=== PATIENT | male | born 1990 | race Caucasian/White ===

== ENCOUNTER 2018-02-20 21:41 | Inpatient (IN) | payer SELFPAY ==
[2018-02-20] MEDS ORDERED: VANCOMYCIN HCL INJ 1000 MG VIAL IV ONE (23:09)
[2018-02-20] MEDS ORDERED: CEFTRIAXONE INJ 1000 MG VIAL IV ONE (23:10)
--- NOTE | 2018-02-20 23:35 | ER Document Report ---
ED General - General Chief Complaint: Testicular Pain Stated Complaint: POSSIBLE LUMP ON TESTICLE Time Seen by Provider: 02/20/18 23:02 Notes: Patient is a pleasant 28-year-old male who presents with complaint of redness to the scrotal area. He said initially had a small red bump on the scrotum and then it started to spread redness and now the entire scrotal area is red and swollen. He says is only minimally painful. No fevers. No vomiting. Is not diabetic. He has no medical problems. Does not smoke or drink. He is otherwise healthy. No other complaints at this time. No pain into the abdomen or surrounding pelvis. TRAVEL OUTSIDE OF THE [place] IN LAST 30 DAYS: No - Related Data Allergies/Adverse Reactions: ciprofloxacin [From Cipro] Allergy (Verified 02/20/18 22:50) Past Medical History - Social History Smoking Status: Former Smoker Chew tobacco use (# tins/day): No Frequency of alcohol use: Rare Drug Abuse: None Family History: Reviewed & Not Pertinent Patient has suicidal ideation: No Patient has homicidal ideation: No Renal/ Medical History: Denies: Hx Peritoneal Dialysis GI Medical History: Reports: Hx Gastroesophageal Reflux Disease Review of Systems - Review of Systems Notes: My Normal Review Basic REVIEW OF SYSTEMS: CONSTITUTIONAL : Denies fever, chills, or sweats. Denies recent illness. GASTROINTESTINAL: Denies abdominal pain. Denies nausea, vomiting, or diarrhea. Denies constipation. Last BM: GENITOURINARY: redness and swelling to scrotal region MUSCULOSKELETAL: Denies neck or back pain or joint pain or swelling. SKIN: redness to scrotal region ALL OTHER SYSTEMS REVIEWED AND NEGATIVE. Physical Exam - Vital signs Vitals: Temp Pulse Resp BP Pulse Ox 99.6 F 108 H 18 134/75 H 98 02/20/18 21:41 02/20/18 21:41 02/20/18 21:41 02/20/18 21:41 02/20/18 21:41 - Notes Notes: General Appearance: Well nourished, alert, cooperative, no acute distress, no obvious discomfort. Vitals: reviewed, See vital signs table. Abdomen: Normal BS, soft, No rigidity, No abdominal tenderness, No guarding, no rebound, no abdominal masses, no organomegaly Genital: Some redness and swelling to the scrotal region. No redness spreading to pelvic region. No pain to palpation to the pelvic region. No crepitance to palpation. Extremities: strength 5/5 in all extremities, good pulses in all extremities, no swelling or tenderness in the extremities, no edema. Skin: warm, dry, appropriate color, no rash Neuro: speech clear, oriented x 3, normal affect, responds appropriately to questions. Course - Re-evaluation Re-evalutation: 02/21/18 01:54 I reevaluated the patient. Patient has no signs of Christiano's gangrene. Patient looks well. The radiologist and fortunately read the ultrasound as possible early signs of abscess or Christiano's gangrene. Once again the patient has no risk factors for this and otherwise looks well however he does have significant scrotal cellulitis. I did speak with the hospitalist who agrees to admit the patient with urology consult for observation and treatment. Dictation of this chart was performed using voice recognition software; therefore, there may be some unintended grammatical errors. - Vital Signs Vital signs: Temp Pulse Resp BP Pulse Ox 99.6 F 108 H 18 134/75 H 98 02/20/18 21:41 02/20/18 21:41 02/20/18 21:41 02/20/18 21:41 02/20/18 21:41 - Laboratory Result Diagrams: 02/20/18 23:30 02/20/18 23:30 Laboratory results interpreted by me: 02/20/18 02/20/18 02/21/18 23:30 23:30 01:21 WBC 12.5 H Hgb 11.6 L Hct 35.3 L MCV 76 L MCH 25.1 L RDW 14.6 H Lymphocytes % 12.3 L Absolute Neutrophils 9.6 H Glucose 111 H Urine Protein 30 H Urine Blood SMALL H Urine Urobilinogen 4.0 H Discharge - Discharge Clinical Impression: Cellulitis of scrotum Condition: Stable Disposition: ADMITTED OBSERVATION
[2018-02-20 23:49] LABS: ABSOLUTE BASOPHILS # (AUTO) 0.1 10^3/uL (0.0-0.2); ABSOLUTE EOSINOPHILS # (AUTO) 0.2 10^3/uL (0.0-0.6); ABSOLUTE LYMPHOCYTES (AUTO) 1.5 10^3/uL (0.5-4.7); ABSOLUTE MONOCYTES (AUTO) 1.1 10^3/uL (0.1-1.4); ABSOLUTE NEUT (AUTO) 9.6 10^3/uL (1.7-8.2); BASOPHILS % (AUTO) 0.7 % (0-2); EOSINOPHILS % (AUTO) 1.3 % (0-6); HEMATOCRIT 35.3 % (37.9-51.0); HEMOGLOBIN 11.6 g/dL (13.5-17.0); LYMPHOCYTES % (AUTO) 12.3 % (13-45); MEAN CORPUSCULAR HEMOGLOBIN 25.1 pg (27.0-33.4); MEAN CORPUSCULAR HGB CONC 32.9 g/dL (32.0-36.0); MEAN CORPUSCULAR VOLUME 76 fl (80-97); MONOCYTES % (AUTO) 8.8 % (3-13); PLATELET COUNT 385 10^3/uL (150-450); RED BLOOD COUNT 4.63 10^6/uL (4.35-5.55); RED CELL DISTRIBUTION WIDTH 14.6 % (11.5-14.0); SEGMENTED NEUTROPHILS % (AUTO) 76.9 % (42-78); TOTAL CELLS COUNTED % (AUTO) 100 %; WHITE BLOOD COUNT 12.5 10^3/uL (4.0-10.5)
[2018-02-21 00:02] LABS: ANION GAP 8 (5-19); BLOOD UREA NITROGEN 13 mg/dL (7-20); CALCIUM 8.6 mg/dL (8.4-10.2); CARBON DIOXIDE 28 mmol/L (22-30); CHLORIDE 103 mmol/L (98-107); GLUCOSE 111 mg/dL (75-110); POTASSIUM 4.1 mmol/L (3.6-5.0); SODIUM 138.5 mmol/L (137-145)
--- NOTE | 2018-02-21 01:27 | RADIOLOGY REPORT (SQ) ---
EXAM DESCRIPTION: U/S SCROTUM W/DOPPLER CLINICAL HISTORY: 28 years Male, swollen testicles COMPARISON: None. TECHNIQUE: Real-time sonographic images of the scrotal contents obtained using a linear multi hertz transducer. Color and spectral Doppler imaging was also obtained. FINDINGS: Testicles: The right testicle measures 4.2 x 2.4 x 2.7 cm. The left testicle measures 4.2 x 2.2 x 2.7 cm. No solid intratesticular mass identified. Homogenous echogenicity of the testicles. Epididymis:No abnormalities of the epididymis. Hydrocele: Small bilateral hydroceles. Blood flow:Normal arterial and venous blood flow identified bilaterally. Other: There is edema within the scrotal soft tissues inferior to the left testicle. There is heterogeneous soft tissue fluid collection measuring 1.0 x 1.5 x 1.2 cm possibly representing an abscess or inflammatory phlegmon. Hyperemia of the scrotal soft tissues. IMPRESSION: 1. Normal blood flow identified in the testicles bilaterally. 2. Small bilateral hydroceles. 3. Edema and hyperemia of the scrotal soft tissues with possible 1.5 cm heterogeneous fluid collection in the left scrotal soft tissues. These findings could be seen with cellulitis and soft tissue developing abscess. This finding could be also be associated with Christiano's gangrene. Correlation for history of diabetes recommended.
[2018-02-21 01:34] LABS: APPEARANCE,URINE SLIGHTLY-CLOUDY; BILIRUBIN,URINE NEGATIVE (NEGATIVE); COLOR,URINE YELLOW; GLUCOSE, URINE NEGATIVE (NEGATIVE); KETONES,URINE NEGATIVE (NEGATIVE); LEUKOCYTE ESTERASE,URINE NEGATIVE (NEGATIVE); NITRITE,URINE NEGATIVE (NEGATIVE); PROTEIN,URINE 30 mg/dL (NEGATIVE); URINE SPECIFIC GRAVITY 1.026
[2018-02-21] MEDS ORDERED: ONDANSETRON HCL INJ/PF 4 MG/2 ML SDV IV PRN (02:13)
[2018-02-21] MEDS ORDERED: OXYCODONE-ACETAMINOPHEN 5-325 MG TABLET PO PRN (02:13)
--- NOTE | 2018-02-21 02:37 | PDOC H&P ---
History of Present Illness History of Present Illness: QUINN TREVINO is a 28 year old male patient who does not have significant medical history presents with one-week history of scrotal swelling and redness. He reports initially it started as a small papule which spread to the rest of his scrotum diffusely. His initial blood workup shows mild leukocytosis of 12.5 otherwise nonrevealing. Scrotal ultrasound reported as edema and hyperemia of the scrotal soft tissue with possible 1.5 cm heterogeneous fluid collection in the left scrotal soft tissue. These findings could be seen with cellulitis and soft tissue developing abscess. This finding could be also associated with Fourier's gangrene. On physical examination he has diffuse hyperemia and tenderness of his scrotum and some degree of hyperemia or so on his left eye he has also bilateral enlarged lymph nodes marked on the left side which could be reactive lymphadenopathy. Past Medical History Medical History: None GI Medical History: Reports: Gastroesophageal Reflux Disease Past Surgical History Past Surgical History: Reports: None Social History Smoking Status: Former Smoker Family History Family History: Reviewed & Not Pertinent Parental Family History Reviewed: Yes Children Family History Reviewed: Yes Sibling(s) Family History Reviewed.: Yes Medication/Allergy Allergies/Adverse Reactions: ciprofloxacin [From Cipro] Allergy (Verified 02/20/18 22:50) Review of Systems Constitutional: PRESENT: weight loss Eyes: ABSENT: visual disturbances Respiratory: ABSENT: cough, hemoptysis Gastrointestinal: ABSENT: abdominal pain, constipation, diarrhea, hematemesis, hematochezia, nausea, vomiting Genitourinary: PRESENT: as per HPI Integumentary: PRESENT: as per HPI Neurological: ABSENT: abnormal gait, abnormal speech, confusion, dizziness, focal weakness, syncope Psychiatric: ABSENT: anxiety, depression, homidical ideation, suicidal ideation Physical Exam Vital Signs: Temp Pulse Resp BP Pulse Ox 99.6 F 108 H 18 134/75 H 98 02/20/18 21:41 02/20/18 21:41 02/20/18 21:41 02/20/18 21:41 02/20/18 21:41 Intake & Output 02/19/18 02/20/18 02/21/18 06:59 06:59 06:59 Weight 104 kg General appearance: PRESENT: no acute distress Head exam: PRESENT: atraumatic, normocephalic Respiratory exam: PRESENT: clear to auscultation ever. ABSENT: rales, rhonchi, wheezes Cardiovascular exam: PRESENT: RRR. ABSENT: diastolic murmur, rubs, systolic murmur GI/Abdominal exam: PRESENT: normal bowel sounds, soft. ABSENT: distended, guarding, mass, organolmegaly, rebound, tenderness Gentrourinary exam: PRESENT: erythema, scrotal swelling, other - Bilateral inguinal lymphadenopathy Results Laboratory Results: 02/20/18 23:30 02/20/18 23:30 02/20/18 02/20/18 02/21/18 23:30 23:30 01:21 WBC 12.5 H RBC 4.63 Hgb 11.6 L Hct 35.3 L MCV 76 L MCH 25.1 L MCHC 32.9 RDW 14.6 H Plt Count 385 Seg Neutrophils % 76.9 Lymphocytes % 12.3 L Monocytes % 8.8 Eosinophils % 1.3 Basophils % 0.7 Absolute Neutrophils 9.6 H Absolute Lymphocytes 1.5 Absolute Monocytes 1.1 Absolute Eosinophils 0.2 Absolute Basophils 0.1 Sodium 138.5 Potassium 4.1 Chloride 103 Carbon Dioxide 28 Anion Gap 8 BUN 13 Creatinine 0.89 Est GFR ( Amer) > 60 Est GFR (Non-Af Amer) > 60 Glucose 111 H Calcium 8.6 Urine Color YELLOW Urine Appearance SLIGHTLY-CLOUDY Urine pH 5.0 Ur Specific [place] 1.026 Urine Protein 30 H Urine Glucose (UA) NEGATIVE Urine Ketones NEGATIVE Urine Blood SMALL H Urine Nitrite NEGATIVE Ur Leukocyte Esterase NEGATIVE Urine WBC (Auto) 1 Urine RBC (Auto) 3 Impressions: Scrotum Ultrasound 02/20/18 22:14 IMPRESSION: 1. Normal blood flow identified in the testicles bilaterally. 2. Small bilateral hydroceles. 3. Edema and hyperemia of the scrotal soft tissues with possible 1.5 cm heterogeneous fluid collection in the left scrotal soft tissues. These findings could be seen with cellulitis and soft tissue developing abscess. This finding could be also be associated with Christiano's gangrene. Correlation for history of diabetes recommended. Assessment & Plan - Diagnosis (1) Cellulitis of scrotum Is this a current diagnosis for this admission?: Yes Plan: Patient has been started on cefepime. Urology consulted - Time Time Spent: 30 to 50 Minutes - Inpatient Certification Medical Necessity: Need for IV Antibiotics
[2018-02-21] MEDS: LANSOPRAZOLE 30 MG TAB.RAP.DR PO SCH (06:04)
[2018-02-21] MEDS ORDERED: CEFEPIME 2 GM/D5W RTU 2 GM/50 ML RTUPB IV SCH (10:00)
[2018-02-21] MEDS: ENOXAPARIN SODIUM INJ 40 MG/0.4 ML DISP.SYRIN SUBCUT SCH (10:58)
[2018-02-21] MEDS: CEFEPIME HCL 2 GM in DEXTROSE 5%-WATER 50 ML IV SCH ×2 (10:58→22:12)
--- NOTE | 2018-02-21 13:11 | PDOC CONSULTATION ---
Consultation Consult Date: 02/21/18 Consult reason:: scrotal swelling History of Present Illness Admission Date/PCP: 02/21/18 02:25 Patient complains of: Patient presented with scrotal swelling redness and irritation. History of Present Illness: QUINN TREVINO is a 28 year old male patient noticed 2 days ago some swelling and redness of the scrotum that was itchy there was no urinary problems no discharge the swelling was red irritated but no fluctuant no testicular pain. There was no fever no chills no nausea no vomiting. Past Medical History GI Medical History: Reports: Gastroesophageal Reflux Disease Past Surgical History Past Surgical History: Reports: None Social History Smoking Status: Former Smoker Number of Years Smokin Last Time Smoked: 7 years ago Frequency of Alcohol Use: None Hx Recreational Drug Use: No Drugs: None Hx Prescription Drug Abuse: No - Advance Directive Resuscitation Status: Full Code Family History Family History: Reviewed & Not Pertinent Parental Family History Reviewed: No Children Family History Reviewed: No Sibling(s) Family History Reviewed.: No Medication/Allergy Home Medications: Multivitamin [Tab-A-Sita (Multiple Vitamin) Tablet] 1 tab PO DAILY 02/21/18 Ranitidine HCl [Zantac 150 mg Tablet] 150 mg PO DAILY 02/21/18 Allergies/Adverse Reactions: ciprofloxacin [From Cipro] Allergy (Verified 02/20/18 22:50) Physical Exam Vital Signs: Temp Pulse Resp BP Pulse Ox 98.4 F 82 16 112/57 L 97 02/21/18 11:58 02/21/18 11:58 02/21/18 11:58 02/21/18 11:58 02/21/18 11:58 Intake & Output 02/20/18 02/21/18 02/22/18 06:59 06:59 06:59 Weight 93.7 kg Additional comments: Physical exam of the scrotum both testes are normal nontender. The there is a skin irritation and redness and swelling edema of the cephalad part of the scrotum mainly on the left side but is not involving the whole left scrotum. There is no fluctuation or evidence of abscess by physical exam Results Impressions: Scrotum Ultrasound 02/20/18 22:14 IMPRESSION: 1. Normal blood flow identified in the testicles bilaterally. 2. Small bilateral hydroceles. 3. Edema and hyperemia of the scrotal soft tissues with possible 1.5 cm heterogeneous fluid collection in the left scrotal soft tissues. These findings could be seen with cellulitis and soft tissue developing abscess. This finding could be also be associated with Christiano's gangrene. Correlation for history of diabetes recommended. Assessment & Plan - Diagnosis (1) Cellulitis of scrotum Is this a current diagnosis for this admission?: Yes Plan: I reviewed his white count is 12,000 however there is no shift to the left and his that he is afebrile according to him the swelling is less and the pain is less so I agree with the treatment IV antibiotics and I will follow-up with him preferably to repeat the CBC tomorrow
[2018-02-21] MEDS: ACETAMINOPHEN 325 MG TABLET PO PRN (23:57)
[2018-02-22] MEDS: LANSOPRAZOLE 30 MG TAB.RAP.DR PO SCH (05:30)
[2018-02-22 08:19] LABS: ABSOLUTE BASOPHILS # (AUTO) 0.1 10^3/uL (0.0-0.2); ABSOLUTE EOSINOPHILS # (AUTO) 0.3 10^3/uL (0.0-0.6); ABSOLUTE LYMPHOCYTES (AUTO) 1.5 10^3/uL (0.5-4.7); ABSOLUTE MONOCYTES (AUTO) 1.3 10^3/uL (0.1-1.4); ABSOLUTE NEUT (AUTO) 10.3 10^3/uL (1.7-8.2); BASOPHILS % (AUTO) 0.5 % (0-2); EOSINOPHILS % (AUTO) 2.1 % (0-6); HEMATOCRIT 33.9 % (37.9-51.0); HEMOGLOBIN 11.2 g/dL (13.5-17.0); LYMPHOCYTES % (AUTO) 11.1 % (13-45); MEAN CORPUSCULAR HEMOGLOBIN 25.3 pg (27.0-33.4); MEAN CORPUSCULAR HGB CONC 33.2 g/dL (32.0-36.0); MEAN CORPUSCULAR VOLUME 76 fl (80-97); MONOCYTES % (AUTO) 9.7 % (3-13); PLATELET COUNT 353 10^3/uL (150-450); RED BLOOD COUNT 4.44 10^6/uL (4.35-5.55); SEGMENTED NEUTROPHILS % (AUTO) 76.6 % (42-78); TOTAL CELLS COUNTED % (AUTO) 100 %; WHITE BLOOD COUNT 13.4 10^3/uL (4.0-10.5)
[2018-02-22] MEDS: ENOXAPARIN SODIUM INJ 40 MG/0.4 ML DISP.SYRIN SUBCUT SCH (09:26)
[2018-02-22] MEDS: FAMOTIDINE 20 MG TABLET PO PRN ×2 (09:27→22:18)
--- NOTE | 2018-02-22 09:59 | PROGRESS NOTE E ---
Progress Note NAME: QUINN TREVINO : 1990 AGE: 28Y DATE: 02/22/2018 ROOM: 207 SUBJECTIVE: The patient is lying in bed. He states he feels a little better in comparison to yesterday. The patient did have fever overnight. He stated he felt this and was sweaty. The patient denied any nausea, vomiting, diarrhea. No shortness of breath, dizziness, chest pain. No fevers, chills. The patient still has tenderness of the scrotal area, but overall feels it is improved, and the patient does not voice any other concerns at this time. REVIEW OF SYSTEMS: Rest of review of systems negative. MEDICATIONS: Medications have been reviewed. OBJECTIVE: GENERAL: The patient is a 28-year-old male who is awake, alert. He is oriented to person, place, time, and situation. He is verbal, conversational, does not appear to be in any acute distress. VITAL SIGNS: Temperature is 99.1, pulse 80, respirations 18, blood pressure is 118/62, T-max overnight is 100.6. SKIN: Warm and dry. No rash. Not diaphoretic. HEENT: Pupils equal, round, and reactive to light and accommodation. Conjunctiva is pink. No evidence of JVP. CARDIOVASCULAR SYSTEM: Heart is regular. There is no murmur or rub. CHEST: Clear, symmetrical, unlabored. ABDOMEN: Soft, nontender, nondistended. BACK: No CVA tenderness or sacral edema. EXTREMITIES: No clubbing, cyanosis, or edema. GENITOURINARY: The patient's scrotum does show redness and edema of the scrotum, which is apparently improved in comparison to yesterday. No evidence of abscess. DIAGNOSTICS: Lab values are as follows: Hematology obtained on 02/22/2018: WBC is 13.4, hemoglobin is 11.2, hematocrit is 33.6, platelet count is 353,000. Microbiology: Blood cultures obtained on 02/21/2018 reveal no growth. IMPRESSION AND PLAN: 1. SCROTAL CELLULITIS. The patient's symptoms do persist. He actually had a white count that increased and his temperature trended up overnight. Will expand the patient's antibiotic coverage and do appreciate Urology input on this. 2. GASTROESOPHAGEAL REFLUX DISEASE. Will continue as needed H2 receptor marie. DISPOSITION: The patient is a FULL CODE. Pending patient's symptomatology and diagnostic findings, will re-evaluate in the a.m. Time spent on this followup including assessment, plan, physical examination, patient education, and review of records is 20 minutes. DICTATING PHYSICIAN: QUINN BROWN NP [id number] PHY#: [id number] ID: [id number] JOB#: [id number] ACCT: [id number] cc: >
[2018-02-22] MEDS: AMPICILLIN SODIUM/SULBACTAM NA 3 GM in NORMAL SALINE 100 ML IV SCH ×3 (11:45→23:42)
[2018-02-22] MEDS: ACETAMINOPHEN 325 MG TABLET PO PRN (17:50)
[2018-02-23] MEDS: LANSOPRAZOLE 30 MG TAB.RAP.DR PO SCH (05:02)
[2018-02-23] MEDS: AMPICILLIN SODIUM/SULBACTAM NA 3 GM in NORMAL SALINE 100 ML IV SCH ×2 (05:02→11:12)
[2018-02-23] MEDS: ACETAMINOPHEN 325 MG TABLET PO PRN ×2 (05:07→23:30)
[2018-02-23 06:06] LABS: ABSOLUTE BASOPHILS # (AUTO) 0.1 10^3/uL (0.0-0.2); ABSOLUTE EOSINOPHILS # (AUTO) 0.2 10^3/uL (0.0-0.6); ABSOLUTE LYMPHOCYTES (AUTO) 1.6 10^3/uL (0.5-4.7); ABSOLUTE MONOCYTES (AUTO) 1.2 10^3/uL (0.1-1.4); ABSOLUTE NEUT (AUTO) 10.1 10^3/uL (1.7-8.2); BASOPHILS % (AUTO) 0.9 % (0-2); EOSINOPHILS % (AUTO) 1.5 % (0-6); HEMATOCRIT 32.6 % (37.9-51.0); HEMOGLOBIN 10.8 g/dL (13.5-17.0); LYMPHOCYTES % (AUTO) 11.9 % (13-45); MEAN CORPUSCULAR HEMOGLOBIN 25.2 pg (27.0-33.4); MEAN CORPUSCULAR HGB CONC 33.2 g/dL (32.0-36.0); MEAN CORPUSCULAR VOLUME 76 fl (80-97); MONOCYTES % (AUTO) 9.5 % (3-13); PLATELET COUNT 315 10^3/uL (150-450); RED CELL DISTRIBUTION WIDTH 14.3 % (11.5-14.0); SEGMENTED NEUTROPHILS % (AUTO) 76.2 % (42-78); TOTAL CELLS COUNTED % (AUTO) 100 %; WHITE BLOOD COUNT 13.2 10^3/uL (4.0-10.5)
--- NOTE | 2018-02-23 09:08 | PDOC PROGRESS REPORT ---
Subjective Progress Note for:: 02/23/18 Subjective:: edema of scrotum Reason For Visit: SCROTAL CELLULITIS Physical Exam Vital Signs: Temp Pulse Resp BP Pulse Ox 98.8 F 76 16 110/59 L 96 02/23/18 07:18 02/23/18 07:18 02/23/18 07:18 02/23/18 07:18 02/23/18 07:18 Intake & Output 02/22/18 02/23/18 02/24/18 06:59 06:59 06:59 Intake Total 830 200 Balance 830 200 Weight 94.6 kg 104.1 kg Results Laboratory Results: 02/23/18 05:37 02/23/18 05:37 WBC 13.2 H RBC 4.30 L Hgb 10.8 L Hct 32.6 L MCV 76 L MCH 25.2 L MCHC 33.2 RDW 14.3 H Plt Count 315 Seg Neutrophils % 76.2 Lymphocytes % 11.9 L Monocytes % 9.5 Eosinophils % 1.5 Basophils % 0.9 Absolute Neutrophils 10.1 H Absolute Lymphocytes 1.6 Absolute Monocytes 1.2 Absolute Eosinophils 0.2 Absolute Basophils 0.1 Impressions: Scrotum Ultrasound 02/20/18 22:14 IMPRESSION: 1. Normal blood flow identified in the testicles bilaterally. 2. Small bilateral hydroceles. 3. Edema and hyperemia of the scrotal soft tissues with possible 1.5 cm heterogeneous fluid collection in the left scrotal soft tissues. These findings could be seen with cellulitis and soft tissue developing abscess. This finding could be also be associated with Christiano's gangrene. Correlation for history of diabetes recommended. Status: Imported from PACS Assessment & Plan - Diagnosis (1) Cellulitis of scrotum Is this a current diagnosis for this admission?: Yes Plan: PE ; edema is present but less impressive and non tender, no evidence of flactuation or abscess , because of persistent fever and elevated WBC and shift to the left will repeat US and compare it with the previous - Time Medications reviewed and adjusted accordingly: Yes
--- NOTE | 2018-02-23 10:16 | RADIOLOGY REPORT (SQ) ---
EXAM DESCRIPTION: U/S SCROTUM W/DOPPLER COMPLETED DATE/TIME: 02/23/2018 10:05 am REASON FOR STUDY: left scrotal edema r/o abscess COMPARISON: 02/21/2018 TECHNIQUE: Static and realtime james scale imaging of the scrotum and testes. Selected color Doppler and spectral images recorded to document blood flow. LIMITATIONS: None. FINDINGS: RIGHT: TESTICLE: Normal size. Normal echotexture. Normal blood flow. No mass. EPIDIDYMIS: Normal. HYDROCELE OR VARICOCELE: Small to moderate hydrocele. HERNIA OR EXTRA-TESTICULAR MASS: No. OTHER: No other significant finding. LEFT: TESTICLE: Normal size. Normal echotexture. Normal blood flow. No mass. EPIDIDYMIS: Normal. HYDROCELE OR VARICOCELE: Small to moderate hydrocele. HERNIA OR EXTRA-TESTICULAR MASS: No. OTHER: Scrotal wall thickening. IMPRESSION: NORMAL TESTES WITHOUT MASS OR TORSION. BILATERAL HYDROCELES. SCROTAL WALL THICKENING WITHOUT ABSCESS IDENTIFIED. TECHNICAL DOCUMENTATION: JOB ID: [id number] [employer]- All Rights Reserved Reading location - IP/workstation name: [email or web address]
[2018-02-23] MEDS: FAMOTIDINE 20 MG TABLET PO PRN ×2 (11:07→21:21)
[2018-02-23] MEDS: ENOXAPARIN SODIUM INJ 40 MG/0.4 ML DISP.SYRIN SUBCUT SCH (11:12)
[2018-02-23] MEDS ORDERED: VANCOMYCIN HCL 0 MG in DEXTROSE 5%-WATER 250 ML IV NR (14:45)
--- NOTE | 2018-02-23 16:14 | PDOC PROGRESS REPORT ---
Subjective Progress Note for:: 02/23/18 Subjective:: QUINN TREVINO is a 28 year old male who was admitted on 02/21/2018 for scrotal cellulitis. The patient was seen this morning on rounds, he states that his scrotal erythema and swelling has improved. There is still evidence of mild erythema to the dorsal plane of the penis and anterior scrotum. Additionally the patient denies any pain, dysuria, or penile drainage. Evaluated by urologist Dr. Alamo is concerned that the patient's leukocytosis with left shift is not improving despite broadening antibiotics. Plan for repeat ultrasound to assess for presence of abscess. Notified at 1300 by the nursing staff that the patient's scrotal erythema was getting acutely worse and he now has a small area of swelling at the base of the penis. My follow up assessment revealed the spread of erythema around the scrotum (nearly circumferential) and the dorsal aspect of the penis. There is a small area of swelling at the base of the penile shaft. The patient denies pain , penile discharge, dysuria, fever, or chills. The patient was afebrile, and the rest of his vitals all remained WNL. Discussed with Dr. Alamo and plan to broaden antibiotic spectrum. Reason For Visit: SCROTAL CELLULITIS Physical Exam Vital Signs: Temp Pulse Resp BP Pulse Ox 99.6 F 88 18 120/70 99 02/23/18 15:16 02/23/18 15:16 02/23/18 15:16 02/23/18 15:16 02/23/18 15:16 Intake & Output 02/22/18 02/23/18 02/24/18 06:59 06:59 06:59 Intake Total 830 200 Balance 830 200 Weight 94.6 kg 104.1 kg General appearance: PRESENT: no acute distress Eye exam: PRESENT: conjunctiva pink, PERRLA Mouth exam: PRESENT: moist Neck exam: PRESENT: full ROM Respiratory exam: PRESENT: symmetrical, unlabored Pulses: PRESENT: normal radial pulses, normal dorsalis pedis pul GI/Abdominal exam: PRESENT: soft. ABSENT: tenderness Rectal exam: PRESENT: deferred Gentrourinary exam: PRESENT: erythema, scrotal swelling, testicular tenderness. ABSENT: urethral discharge Extremities exam: PRESENT: full ROM Musculoskeletal exam: PRESENT: ambulatory, full ROM Neurological exam: PRESENT: alert, awake, oriented to person, oriented to place , oriented to time, oriented to situation Psychiatric exam: PRESENT: appropriate affect Results Laboratory Results: 02/23/18 05:37 02/23/18 05:37 WBC 13.2 H RBC 4.30 L Hgb 10.8 L Hct 32.6 L MCV 76 L MCH 25.2 L MCHC 33.2 RDW 14.3 H Plt Count 315 Seg Neutrophils % 76.2 Lymphocytes % 11.9 L Monocytes % 9.5 Eosinophils % 1.5 Basophils % 0.9 Absolute Neutrophils 10.1 H Absolute Lymphocytes 1.6 Absolute Monocytes 1.2 Absolute Eosinophils 0.2 Absolute Basophils 0.1 Impressions: Scrotum Ultrasound 02/23/18 00:00 IMPRESSION: NORMAL TESTES WITHOUT MASS OR TORSION. BILATERAL HYDROCELES. SCROTAL WALL THICKENING WITHOUT ABSCESS IDENTIFIED. Status: Imported from PACS Assessment & Plan - Diagnosis (1) Cellulitis of scrotum Is this a current diagnosis for this admission?: Yes Plan: Unclear etiology. The patient presents with cellulitis of the scrotum, his symptoms seemed to be improving but became acutely worse this afternoon. Pain has significantly improved today. Low grade temperature overnight (T99.1) leukocytosis (WBC 13.2) unchanged from yesterday, Dr. Alamo of Urology concerned about this, requested to repeat the US to evaluate for abscess. Results negative. Erythema present on the anterior scrotum and dorsal plane of the penis , mild swelling to the base of the penis Antibiotics broadened from Unasyn to Vancomycin and Zosyn Urology consulted, appreciate their recommendations (2) GERD (gastroesophageal reflux disease) Is this a current diagnosis for this admission?: Yes Plan: Continue Pepcid - Time Time Spent with patient: 15-24 minutes Medications reviewed and adjusted accordingly: Yes Anticipated discharge: Home - Inpatient Certification Based on my medical assessment, after consideration of the patient's comorbidities, presenting symptoms, or acuity I expect that the services needed warrant INPATIENT care.: Yes I certify that my determination is in accordance with my understanding of Medicare's requirements for reasonable and necessary INPATIENT services [42 CFR 412.3e].: Yes Medical Necessity: Need for IV Antibiotics, Risk of Complication if Not Cared For in Hospital
[2018-02-23] MEDS: PIPERACILLIN SODIUM/TAZOBACTAM 3.375 GM in NORMAL SALINE 100 ML IV SCH ×2 (17:58→23:31)
[2018-02-23] MEDS: VANCOMYCIN HCL 1,500 MG in DEXTROSE 5%-WATER 250 ML IV SCH (18:46)
[2018-02-23] MEDS: DIPHENHYDRAMINE HCL 50 MG/ML VIAL IV PRN (23:32)
[2018-02-24] MEDS: VANCOMYCIN HCL 1,500 MG in DEXTROSE 5%-WATER 250 ML IV SCH ×2 (03:48→10:10)
[2018-02-24] MEDS: LANSOPRAZOLE 30 MG TAB.RAP.DR PO SCH (05:49)
[2018-02-24] MEDS: PIPERACILLIN SODIUM/TAZOBACTAM 3.375 GM in NORMAL SALINE 100 ML IV SCH ×4 (05:49→23:58)
[2018-02-24 07:00] LABS: ABSOLUTE BASOPHILS # (AUTO) 0.1 10^3/uL (0.0-0.2); ABSOLUTE EOSINOPHILS # (AUTO) 0.2 10^3/uL (0.0-0.6); ABSOLUTE LYMPHOCYTES (AUTO) 1.2 10^3/uL (0.5-4.7); ABSOLUTE MONOCYTES (AUTO) 1.2 10^3/uL (0.1-1.4); ABSOLUTE NEUT (AUTO) 10.1 10^3/uL (1.7-8.2); BASOPHILS % (AUTO) 0.9 % (0-2); EOSINOPHILS % (AUTO) 1.4 % (0-6); HEMATOCRIT 34.6 % (37.9-51.0); HEMOGLOBIN 11.2 g/dL (13.5-17.0); MEAN CORPUSCULAR HEMOGLOBIN 24.6 pg (27.0-33.4); MEAN CORPUSCULAR HGB CONC 32.3 g/dL (32.0-36.0); MEAN CORPUSCULAR VOLUME 76 fl (80-97); MONOCYTES % (AUTO) 9.2 % (3-13); PLATELET COUNT 324 10^3/uL (150-450); RED BLOOD COUNT 4.54 10^6/uL (4.35-5.55); SEGMENTED NEUTROPHILS % (AUTO) 79.5 % (42-78); TOTAL CELLS COUNTED % (AUTO) 100 %; WHITE BLOOD COUNT 12.8 10^3/uL (4.0-10.5)
[2018-02-24 07:15] LABS: ALANINE AMINOTRANSFERASE 53 U/L (21-72); ALBUMIN 2.9 g/dL (3.5-5.0); ALKALINE PHOSPHATASE 137 U/L (38-126); ANION GAP 9 (5-19); ASPARTATE AMINO TRANSFERASE 32 U/L (17-59); BILIRUBIN,DIRECT 0.3 mg/dL (0.0-0.4); BILIRUBIN,TOTAL 0.5 mg/dL (0.2-1.3); BLOOD UREA NITROGEN 13 mg/dL (7-20); CALCIUM 8.8 mg/dL (8.4-10.2); CARBON DIOXIDE 31 mmol/L (22-30); CHLORIDE 100 mmol/L (98-107); GLUCOSE 98 mg/dL (75-110); POTASSIUM 4.4 mmol/L (3.6-5.0); SODIUM 140.2 mmol/L (137-145); TOTAL PROTEIN 7.2 g/dL (6.3-8.2)
[2018-02-24] MEDS: ENOXAPARIN SODIUM INJ 40 MG/0.4 ML DISP.SYRIN SUBCUT SCH (10:13)
[2018-02-24] MEDS: FAMOTIDINE 20 MG TABLET PO PRN ×2 (10:14→21:35)
[2018-02-24] MEDS: DIPHENHYDRAMINE HCL 50 MG/ML VIAL IV PRN (10:18)
[2018-02-24 13:34] LABS: ALANINE AMINOTRANSFERASE 49 U/L (21-72); ALBUMIN 2.9 g/dL (3.5-5.0); ALKALINE PHOSPHATASE 129 U/L (38-126); ASPARTATE AMINO TRANSFERASE 30 U/L (17-59); BILIRUBIN,DIRECT 0.3 mg/dL (0.0-0.4); BILIRUBIN,TOTAL 0.5 mg/dL (0.2-1.3); LDH 1342 U/L (313-618); TOTAL PROTEIN 7.1 g/dL (6.3-8.2)
--- NOTE | 2018-02-24 13:47 | PDOC CONSULTATION ---
Consultation Consult Date: 02/24/18 Attending physician:: TRISTEN POLO Consult reason:: lymphadenopathy, groin swelling, wt loss History of Present Illness Admission Date/PCP: 02/21/18 02:25 Patient complains of: Scrotal swelling, wt loss History of Present Illness: QUINN TREVINO is a 28 year old male with recent history of scrotal swelling, this started about 3-4 weeks ago that he remembers, he just moved here from [place], interestingly over the last 6-8 months he tells me is lost about 30-40 pounds. This was unintentional, he apparently was having a lot of reflux and because of that he noted poor p.o. intake, he denies any fevers chills or night sweats. Here, he had scrotal swelling, and has been on antibiotics for several days now, however the scrotal swelling has not improved , he had a scrotal ultrasound 2 that were negative for any abnormality in the scrotum itself. Therefore, urology ordered a CT of the pelvis, this actually indicated that there is retroperitoneal adenopathy, as well as groin adenopathy , along the left pubic symphysis. Past Medical History GI Medical History: Reports: Gastroesophageal Reflux Disease Past Surgical History Past Surgical History: Reports: None Social History Information Source: Patient Smoking Status: Former Smoker Number of Years Smokin Last Time Smoked: 7 years ago Frequency of Alcohol Use: None Hx Recreational Drug Use: No Drugs: None Hx Prescription Drug Abuse: No - Advance Directive Resuscitation Status: Full Code Family History Family History: Reviewed & Not Pertinent Parental Family History Reviewed: Yes Children Family History Reviewed: Yes Sibling(s) Family History Reviewed.: Yes Medication/Allergy Home Medications: Multivitamin [Tab-A-Sita (Multiple Vitamin) Tablet] 1 tab PO DAILY 02/21/18 Ranitidine HCl [Zantac 150 mg Tablet] 150 mg PO DAILY 02/21/18 Allergies/Adverse Reactions: ciprofloxacin [From Cipro] Allergy (Verified 02/20/18 22:50) Review of Systems Constitutional: PRESENT: anorexia, fatigue, weight loss Eyes: ABSENT: visual disturbances Ears: ABSENT: hearing changes Cardiovascular: ABSENT: chest pain, dyspnea on exertion, edema, orthropnea, palpitations Respiratory: ABSENT: cough, hemoptysis Gastrointestinal: ABSENT: abdominal pain, constipation, diarrhea, hematemesis, hematochezia, nausea, vomiting Genitourinary: ABSENT: dysuria, hematuria Musculoskeletal: ABSENT: joint swelling Integumentary: ABSENT: rash, wounds Neurological: ABSENT: abnormal gait, abnormal speech, confusion, dizziness, focal weakness, syncope Psychiatric: ABSENT: anxiety, depression, homidical ideation, suicidal ideation Endocrine: ABSENT: cold intolerance, heat intolerance, polydipsia, polyuria Hematologic/Lymphatic: ABSENT: easy bleeding, easy bruising Physical Exam Vital Signs: Temp Pulse Resp BP Pulse Ox 98.6 F 83 18 109/66 97 02/24/18 12:14 02/24/18 12:14 02/24/18 12:14 02/24/18 12:14 02/24/18 12:14 Intake & Output 02/23/18 02/24/18 02/25/18 06:59 06:59 06:59 Intake Total 200 1000 Balance 200 1000 Weight 104.1 kg 105.1 kg General appearance: PRESENT: no acute distress, well-developed, well-nourished Head exam: PRESENT: atraumatic, normocephalic Eye exam: PRESENT: conjunctiva pink, EOMI, PERRLA. ABSENT: scleral icterus Ear exam: PRESENT: normal external ear exam Mouth exam: PRESENT: moist, tongue midline Neck exam: ABSENT: carotid bruit, JVD, lymphadenopathy, thyromegaly Respiratory exam: PRESENT: clear to auscultation ever. ABSENT: rales, rhonchi, wheezes Cardiovascular exam: PRESENT: RRR. ABSENT: diastolic murmur, rubs, systolic murmur Pulses: PRESENT: normal dorsalis pedis pul Vascular exam: PRESENT: normal capillary refill GI/Abdominal exam: PRESENT: normal bowel sounds, soft. ABSENT: distended, guarding, mass, organolmegaly, rebound, tenderness Rectal exam: PRESENT: deferred Gentrourinary exam: PRESENT: scrotal swelling, other - Left groin adenopathy 1 cm Extremities exam: PRESENT: full ROM. ABSENT: calf tenderness, clubbing, pedal edema Neurological exam: PRESENT: alert, awake, oriented to person, oriented to place , oriented to time, oriented to situation, CN II-XII grossly intact. ABSENT: motor sensory deficit Psychiatric exam: PRESENT: appropriate affect, normal mood. ABSENT: homicidal ideation, suicidal ideation Skin exam: PRESENT: dry, intact, warm. ABSENT: cyanosis, rash Results Laboratory Results: 02/24/18 06:38 02/24/18 06:38 02/24/18 02/24/18 06:38 06:38 WBC 12.8 H RBC 4.54 Hgb 11.2 L Hct 34.6 L MCV 76 L MCH 24.6 L MCHC 32.3 RDW 15.0 H Plt Count 324 Seg Neutrophils % 79.5 H Lymphocytes % 9.0 L Monocytes % 9.2 Eosinophils % 1.4 Basophils % 0.9 Absolute Neutrophils 10.1 H Absolute Lymphocytes 1.2 Absolute Monocytes 1.2 Absolute Eosinophils 0.2 Absolute Basophils 0.1 Sodium 140.2 Potassium 4.4 Chloride 100 Carbon Dioxide 31 H Anion Gap 9 BUN 13 Creatinine 0.87 Est GFR ( Amer) > 60 Est GFR (Non-Af Amer) > 60 Glucose 98 Calcium 8.8 Total Bilirubin 0.5 AST 32 ALT 53 Alkaline Phosphatase 137 H Total Protein 7.2 Albumin 2.9 L Impressions: Scrotum Ultrasound 02/23/18 00:00 IMPRESSION: NORMAL TESTES WITHOUT MASS OR TORSION. BILATERAL HYDROCELES. SCROTAL WALL THICKENING WITHOUT ABSCESS IDENTIFIED. Status: Image reviewed by me Assessment & Plan - Diagnosis (1) Lymphadenopathy Is this a current diagnosis for this admission?: Yes Plan: Retroperitoneal and groin adenopathy thus far, we have ordered beta hCG, LDH, AFP and flow cytometry, lymphoma and testicular cancer are the most likely causes if malignancy is the cause, CT of the chest and abdomen are going to be done tomorrow, however the groin adenopathy is palpable so I have asked Dr. Brewster to take a look and see if he feels excisional biopsy is possible. - Time Time Spent: Greater than 70 Minutes - Inpatient Certification Based on my medical assessment, after consideration of the patient's comorbidities, presenting symptoms, or acuity I expect that the services needed warrant INPATIENT care.: Yes I certify that my determination is in accordance with my understanding of Medicare's requirements for reasonable and necessary INPATIENT services [42 CFR 412.3e].: Yes Medical Necessity: Need for Surgery
[2018-02-24] MEDS ORDERED: ONDANSETRON HCL INJ/PF 4 MG/2 ML SDV IV PRN (14:00)
--- NOTE | 2018-02-24 14:41 | RADIOLOGY REPORT (SQ) ---
EXAM DESCRIPTION: CT PELVIS WITHOUT COMPLETED DATE/TIME: 02/24/2018 12:01 am REASON FOR STUDY: swollen scrotum that is extending COMPARISON: None. TECHNIQUE: CT scan of the pelvis performed with intravenous contrast using helical scanning techniq ue with dynamic intravenous contrast injection. Images reviewed with lung, soft tissue, and bone wind ows. Reconstructed coronal and sagittal MPR images reviewed. Delayed images for evaluation of the uri nary system also acquired. All images stored on PACS. All CT scanners at this facility use dose modulation, iterative reconstruction, and/or weight based d osing when appropriate to reduce radiation dose to as low as reasonably achievable (ALARA). [facility]: Dose Right [facility]: CareDose [facility]: Dose Right [facility]: Teradose 4D [facility]: Barre CONTRAST TYPE AND DOSE: contrast/concentration: Isovue 370.00 mg/ml; Total Contrast Delivered: 100.0 ml; Total Saline Delivered: 72.0 ml RENAL FUNCTION: GFR > 60. RADIATION DOSE: CT Rad equipment meets quality standard of care and radiation dose reduction techniq ues were employed. CTDIvol: 13.5 - 15.7 mGy. DLP: 1223 mGy-cm.. LIMITATIONS: None. FINDINGS: PELVIS: Bilateral inguinal adenopathy. Retroperitoneal and left external iliac adenopathy , the largest lymph node 4.3 x 5.2 cm. ABDOMINAL WALL: No masses. No hernias. BONES: No significant or acute findings. OTHER: No other significant finding. IMPRESSION: Extensive adenopathy suspicious for lymphoma. TECHNICAL DOCUMENTATION: JOB ID: [id number] Quality ID # [id number]: Final reports with documentation of one or more dose reduction techniques (e.g., Au tomated exposure control, adjustment of the mA and/or kV according to patient size, use of iterative reconstruction technique) 2010 [employer]- All Rights Reserved Reading location - IP/workstation name: [email or web address]
[2018-02-24] MEDS ORDERED: NORMAL SALINE 1000 ML 1,000 ML IV PRN (15:31)
--- NOTE | 2018-02-24 15:36 | PDOC CONSULTATION ---
Consultation Consult Date: 02/24/18 Consult reason:: Inguinal lymph node biopsy History of Present Illness Admission Date/PCP: 02/21/18 02:25 History of Present Illness: QUINN TRVEINO is a 28 year old male 28-year-old white male, previously from [place], recently relocated to this area with testicular swelling, discoloration, itching of the scrotal tissues. He was seen in the emergency department where his felt to have orchitis, however ultrasonography of the scrotum was unremarkable. Buttocks without clinical resolution. He subsequently underwent CT scan of the pelvis left inguinal superficial, and deep adenopathy. Oncology was consulted, and concern raised for possible lymphoma, possible testicular malignancy. Surgery was consulted for open lymph node biopsy. He denies history of trauma, previous swelling or infection in the scrotal areas. There is no personal family history of soft tissue or lymph autogenous malignancy. Patient denies any constitutional symptoms. Past Medical History GI Medical History: Reports: Gastroesophageal Reflux Disease, Other - Occasional rash involving scrotum left and Past Surgical History Past Surgical History: Reports: None, Other - Right inguinal herniorrhaphy 2 as a child Social History Smoking Status: Former Smoker Number of Years Smokin Last Time Smoked: 7 years ago Frequency of Alcohol Use: None Hx Recreational Drug Use: No Drugs: None Hx Prescription Drug Abuse: No - Advance Directive Resuscitation Status: Full Code Family History Family History: Reviewed & Not Pertinent Parental Family History Reviewed: Yes Children Family History Reviewed: Yes Sibling(s) Family History Reviewed.: Yes Medication/Allergy Home Medications: Multivitamin [Tab-A-Sita (Multiple Vitamin) Tablet] 1 tab PO DAILY 02/21/18 Ranitidine HCl [Zantac 150 mg Tablet] 150 mg PO DAILY 02/21/18 Allergies/Adverse Reactions: ciprofloxacin [From Cipro] Allergy (Verified 02/20/18 22:50) Review of Systems Constitutional: PRESENT: as per HPI, other - She denies weight loss, anorexia, decreased appetite, rashes or joint pain Eyes: ABSENT: visual disturbances Ears: ABSENT: hearing changes Cardiovascular: ABSENT: chest pain, dyspnea on exertion, edema, orthropnea, palpitations Respiratory: ABSENT: cough, hemoptysis Gastrointestinal: ABSENT: abdominal pain, constipation, diarrhea, hematemesis, hematochezia, nausea, vomiting Genitourinary: PRESENT: as per HPI - Recurrent episodes of superficial rashes left inguinal area left the scrotum proximal inner thighs involved Musculoskeletal: PRESENT: as per HPI Integumentary: PRESENT: as per HPI Neurological: ABSENT: abnormal gait, abnormal speech, confusion, dizziness, focal weakness, syncope Physical Exam Vital Signs: Temp Pulse Resp BP Pulse Ox 98.6 F 83 18 109/66 97 02/24/18 12:14 02/24/18 12:14 02/24/18 12:14 02/24/18 12:14 02/24/18 12:14 Intake & Output 02/23/18 02/24/18 02/25/18 06:59 06:59 06:59 Intake Total 200 1000 Balance 200 1000 Weight 104.1 kg 105.1 kg General appearance: PRESENT: no acute distress Head exam: PRESENT: normocephalic Eye exam: PRESENT: EOMI Mouth exam: PRESENT: dry mucosa Neck exam: PRESENT: full ROM Respiratory exam: PRESENT: clear to auscultation ever Cardiovascular exam: PRESENT: RRR Pulses: PRESENT: normal carotid pulses, normal radial pulses, normal femoral pulses Vascular exam: PRESENT: normal capillary refill GI/Abdominal exam: PRESENT: other Rectal exam: PRESENT: deferred Gentrourinary exam: PRESENT: scrotal swelling - Generalized erythema with desquamating skin; scrotum is minimally boggy. I can appreciate both testicles. Left inguinal skin inner thigh and lower pelvic skin is well slightly blanched alternating with erythematous areas Neurological exam: PRESENT: alert, awake, oriented to person, oriented to place Psychiatric exam: PRESENT: appropriate affect Skin exam: PRESENT: dry Additional comments: Marked adenopathy left groin greater than right groin. No jason skin ulceration ; I cannot appreciate any satellite lesions there is no significant neck or axillary adenopathy Results Laboratory Results: 02/24/18 06:38 02/24/18 06:38 02/24/18 02/24/18 02/24/18 06:38 06:38 12:53 WBC 12.8 H RBC 4.54 Hgb 11.2 L Hct 34.6 L MCV 76 L MCH 24.6 L MCHC 32.3 RDW 15.0 H Plt Count 324 Seg Neutrophils % 79.5 H Lymphocytes % 9.0 L Monocytes % 9.2 Eosinophils % 1.4 Basophils % 0.9 Absolute Neutrophils 10.1 H Absolute Lymphocytes 1.2 Absolute Monocytes 1.2 Absolute Eosinophils 0.2 Absolute Basophils 0.1 Sodium 140.2 Potassium 4.4 Chloride 100 Carbon Dioxide 31 H Anion Gap 9 BUN 13 Creatinine 0.87 Est GFR ( Amer) > 60 Est GFR (Non-Af Amer) > 60 Glucose 98 Calcium 8.8 Total Bilirubin 0.5 0.5 AST 32 30 ALT 53 49 Alkaline Phosphatase 137 H 129 H Total Protein 7.2 7.1 Albumin 2.9 L 2.9 L Impressions: Scrotum Ultrasound 02/23/18 00:00 IMPRESSION: NORMAL TESTES WITHOUT MASS OR TORSION. BILATERAL HYDROCELES. SCROTAL WALL THICKENING WITHOUT ABSCESS IDENTIFIED. Pelvis CT 02/24/18 07:00 IMPRESSION: Extensive adenopathy suspicious for lymphoma. Assessment & Plan - Diagnosis (1) Lymphadenopathy Is this a current diagnosis for this admission?: Yes Plan: Progressive, primarily involving the superficial and deep inguinal jordon basins , suspicious for malignancy Recommendations: 1. Agree with plans for open excisional biopsy for tissue diagnosis, [facility], main operating room, LMAC anesthesia. Patient ate a cheeseburger one half hours ago. Therefore we will make him n.p.o. and set this up for tomorrow, February 25, Dr. Jesus, general surgeon 2. Patient does have some superficial skin changes mostly chronic; there are no jason wounds. We will prophylactically cover this tissue with chlorhexidine scrub and wipe pads this evening. (2) Cellulitis of scrotum Is this a current diagnosis for this admission?: Yes Plan: Minimal improvement with venous antibiotics; suspect erythema edema secondary to underlying malignancy rather than primary infection - Time Time Spent: 30 to 50 Minutes Smoking Cessation Education: 3 to 10 minutes Medications reviewed and adjusted accordingly: Yes Anticipated discharge: Home Within: within 24 hours - Inpatient Certification Based on my medical assessment, after consideration of the patient's comorbidities, presenting symptoms, or acuity I expect that the services needed warrant INPATIENT care.: Yes I certify that my determination is in accordance with my understanding of Medicare's requirements for reasonable and necessary INPATIENT services [42 CFR 412.3e].: Yes Medical Necessity: Need For IV Fluids, Need for Pain Control, Need for IV Antibiotics, Need for Surgery
--- NOTE | 2018-02-24 16:22 | PDOC PROGRESS REPORT ---
Subjective Progress Note for:: 02/24/18 Subjective:: QUINN TREVINO is a 28 year old male who was admitted on 02/21/2018 for scrotal cellulitis. The patient was seen this morning on rounds, he states that his scrotal erythema and swelling are unchanged. There is erythema to the dorsal plane of the penis and anterior scrotum, circumfrential swelling to the base of the penis as well as worsening swelling in the inguinal lymph node area. The patient denies any pain, dysuria, or penile drainage. Evaluated by Dr. Alamo of urology this morning. Given the worsening symptoms, a pelvic CT was ordered. Results demonstrate bilateral inguinal adenopathy, retroperitoneal and left external iliac adenopathy, suspicious for lymphoma or possibly testicular cancer. Oncology has been consulted, Dr. Herzog recommending CT Chest/Abd/Pelvis to evaluate for additional adenopathy. Additionally, surgery has been consulted to evaluate for the possibility of excisional biopsy. Reason For Visit: SCROTAL CELLULITIS Physical Exam Vital Signs: Temp Pulse Resp BP Pulse Ox 98.6 F 83 18 109/66 97 02/24/18 12:14 02/24/18 12:14 02/24/18 12:14 02/24/18 12:14 02/24/18 12:14 Intake & Output 02/23/18 02/24/18 02/25/18 06:59 06:59 06:59 Intake Total 200 1000 Balance 200 1000 Weight 104.1 kg 105.1 kg General appearance: PRESENT: no acute distress Head exam: PRESENT: atraumatic Eye exam: PRESENT: conjunctiva pink, PERRLA Mouth exam: PRESENT: moist Neck exam: PRESENT: full ROM Respiratory exam: PRESENT: clear to auscultation ever, symmetrical, unlabored Cardiovascular exam: PRESENT: +S1, +S2 GI/Abdominal exam: PRESENT: normal bowel sounds, soft. ABSENT: ascites, tenderness Rectal exam: PRESENT: deferred Gentrourinary exam: PRESENT: scrotal swelling - and erythema, other - Circumferential swelling to the base of the penile shaft. ABSENT: testicular tenderness, urethral discharge Extremities exam: PRESENT: full ROM Musculoskeletal exam: PRESENT: ambulatory, full ROM Neurological exam: PRESENT: alert, awake, oriented to person, oriented to place , oriented to time, oriented to situation Psychiatric exam: PRESENT: appropriate affect Skin exam: PRESENT: erythema - Noted on the penis and scrotum. ABSENT: petechiae, vesicles Results Laboratory Results: 02/24/18 06:38 02/24/18 06:38 02/24/18 02/24/18 02/24/18 06:38 06:38 12:53 WBC 12.8 H RBC 4.54 Hgb 11.2 L Hct 34.6 L MCV 76 L MCH 24.6 L MCHC 32.3 RDW 15.0 H Plt Count 324 Seg Neutrophils % 79.5 H Lymphocytes % 9.0 L Monocytes % 9.2 Eosinophils % 1.4 Basophils % 0.9 Absolute Neutrophils 10.1 H Absolute Lymphocytes 1.2 Absolute Monocytes 1.2 Absolute Eosinophils 0.2 Absolute Basophils 0.1 Sodium 140.2 Potassium 4.4 Chloride 100 Carbon Dioxide 31 H Anion Gap 9 BUN 13 Creatinine 0.87 Est GFR ( Amer) > 60 Est GFR (Non-Af Amer) > 60 Glucose 98 Calcium 8.8 Total Bilirubin 0.5 0.5 AST 32 30 ALT 53 49 Alkaline Phosphatase 137 H 129 H Total Protein 7.2 7.1 Albumin 2.9 L 2.9 L Impressions: Scrotum Ultrasound 02/23/18 00:00 IMPRESSION: NORMAL TESTES WITHOUT MASS OR TORSION. BILATERAL HYDROCELES. SCROTAL WALL THICKENING WITHOUT ABSCESS IDENTIFIED. Pelvis CT 02/24/18 07:00 IMPRESSION: Extensive adenopathy suspicious for lymphoma. Status: Imported from PACS Assessment & Plan - Diagnosis (1) Lymphadenopathy Is this a current diagnosis for this admission?: Yes Plan: Pelvic CT completed 02/24 reveals bilateral inguinal adenopathy, retroperitoneal and left external iliac adenopathy. Suspicious for lymphoma versus testicular malignancy. Oncology consulted, they recommend CT chest/abdomen/pelvis to evaluate for further adenopathy. Initiated IVF 100mL/hr given multiple CT scans with IV contrast within 24hrs. Lab work and flow cytometry pending. Surgery consulted for open excisional biopsy of inguinal lymph node. Procedure scheduled for tomorrow 02/25 (2) Cellulitis of scrotum Is this a current diagnosis for this admission?: Yes Plan: Unclear etiology. Given the recent CT findings, unclear if the scrotal erythema and penile swelling is cellulitis vs. related to malignancy The patient presented with 3 week history of erythema of the scrotum, his symptoms seemed to be improving with antibiotics but became acutely worse yesterday afternoon. The patient denies pain, dysuria, fever, chills or penile discharge. Low grade temperature overnight (T100.0) leukocytosis (WBC 12.8) virtually unchanged from yesterday. Dr. Alamo of Urology consulted. Multiple US negative for abscess. Erythema present on the anterior scrotum and dorsal plane of the penis, mild swelling to the base of the penis Antibiotics broadened to Vancomycin and Zosyn on 02/23 Vancomycin switched to Doxyxycline 02/24 to provide coverage for MRSA as well as STI (3) GERD (gastroesophageal reflux disease) Is this a current diagnosis for this admission?: Yes Plan: Continue Pepcid - Time Time Spent with patient: 15-24 minutes Medications reviewed and adjusted accordingly: Yes Anticipated discharge: Home - Inpatient Certification Based on my medical assessment, after consideration of the patient's comorbidities, presenting symptoms, or acuity I expect that the services needed warrant INPATIENT care.: Yes I certify that my determination is in accordance with my understanding of Medicare's requirements for reasonable and necessary INPATIENT services [42 CFR 412.3e].: Yes Medical Necessity: Risk of Complication if Not Cared For in Hospital - Plan Summary Plan Summary: Plan for inguinal lymph node biopsy tomorrow. Additionally, CT chest/Abd/Pelvis tomorrow. Continue antibiotic coverage for the time being until cellulitis can be completely ruled out.
[2018-02-24 19:15] LABS: VANCOMYCIN,TROUGH 7.4 ug/mL (5.0-20.0)
[2018-02-24] MEDS: DOXYCYCLINE HYCLATE 100 MG TABLET PO SCH (21:34)
[2018-02-25] MEDS: LANSOPRAZOLE 30 MG TAB.RAP.DR PO SCH (05:07)
[2018-02-25] MEDS: PIPERACILLIN SODIUM/TAZOBACTAM 3.375 GM in NORMAL SALINE 100 ML IV SCH ×4 (05:08→23:52)
[2018-02-25 06:45] LABS: ABSOLUTE BASOPHILS # (AUTO) 0.1 10^3/uL (0.0-0.2); ABSOLUTE EOSINOPHILS # (AUTO) 0.2 10^3/uL (0.0-0.6); ABSOLUTE LYMPHOCYTES (AUTO) 1.6 10^3/uL (0.5-4.7); ABSOLUTE MONOCYTES (AUTO) 1.2 10^3/uL (0.1-1.4); ABSOLUTE NEUT (AUTO) 9.6 10^3/uL (1.7-8.2); BASOPHILS % (AUTO) 0.8 % (0-2); EOSINOPHILS % (AUTO) 1.9 % (0-6); HEMATOCRIT 31.5 % (37.9-51.0); HEMOGLOBIN 10.4 g/dL (13.5-17.0); LYMPHOCYTES % (AUTO) 12.7 % (13-45); MEAN CORPUSCULAR HGB CONC 33.1 g/dL (32.0-36.0); MEAN CORPUSCULAR VOLUME 75 fl (80-97); MONOCYTES % (AUTO) 9.7 % (3-13); PLATELET COUNT 362 10^3/uL (150-450); RED BLOOD COUNT 4.17 10^6/uL (4.35-5.55); RED CELL DISTRIBUTION WIDTH 14.8 % (11.5-14.0); SEGMENTED NEUTROPHILS % (AUTO) 74.9 % (42-78); TOTAL CELLS COUNTED % (AUTO) 100 %; WHITE BLOOD COUNT 12.8 10^3/uL (4.0-10.5)
[2018-02-25 07:04] LABS: ANION GAP 8 (5-19); BLOOD UREA NITROGEN 13 mg/dL (7-20); CALCIUM 8.5 mg/dL (8.4-10.2); CARBON DIOXIDE 30 mmol/L (22-30); CHLORIDE 102 mmol/L (98-107); GLUCOSE 110 mg/dL (75-110); POTASSIUM 4.5 mmol/L (3.6-5.0); SODIUM 140.2 mmol/L (137-145)
--- NOTE | 2018-02-25 08:48 | PDOC PROGRESS REPORT ---
Subjective Progress Note for:: 02/25/18 Subjective:: Patient is awaiting lymph node excisional biopsy, per nursing it may be happening this afternoon. Reason For Visit: SCROTAL CELLULITIS Physical Exam Vital Signs: Temp Pulse Resp BP Pulse Ox 98.7 F 83 18 108/60 96 02/25/18 04:36 02/25/18 04:36 02/25/18 04:36 02/25/18 04:36 02/25/18 04:36 Intake & Output 02/24/18 02/25/18 02/26/18 06:59 06:59 06:59 Intake Total 1000 1260 Balance 1000 1260 Weight 105.1 kg 105.6 kg General appearance: PRESENT: no acute distress, well-developed, well-nourished Head exam: PRESENT: atraumatic, normocephalic Eye exam: PRESENT: conjunctiva pink, EOMI, PERRLA. ABSENT: scleral icterus Ear exam: PRESENT: normal external ear exam Mouth exam: PRESENT: moist, tongue midline Neck exam: ABSENT: carotid bruit, JVD, lymphadenopathy, thyromegaly Respiratory exam: PRESENT: clear to auscultation ever. ABSENT: rales, rhonchi, wheezes Cardiovascular exam: PRESENT: RRR. ABSENT: diastolic murmur, rubs, systolic murmur Pulses: PRESENT: normal dorsalis pedis pul Vascular exam: PRESENT: normal capillary refill GI/Abdominal exam: PRESENT: normal bowel sounds, soft. ABSENT: distended, guarding, mass, organolmegaly, rebound, tenderness Rectal exam: PRESENT: deferred Extremities exam: PRESENT: full ROM. ABSENT: calf tenderness, clubbing, pedal edema Neurological exam: PRESENT: alert, awake, oriented to person, oriented to place , oriented to time, oriented to situation, CN II-XII grossly intact. ABSENT: motor sensory deficit Psychiatric exam: PRESENT: appropriate affect, normal mood. ABSENT: homicidal ideation, suicidal ideation Skin exam: PRESENT: dry, intact, warm. ABSENT: cyanosis, rash Results Laboratory Results: 02/25/18 06:20 02/25/18 06:20 02/24/18 02/24/18 02/25/18 12:53 18:39 06:20 WBC 12.8 H RBC 4.17 L Hgb 10.4 L Hct 31.5 L MCV 75 L MCH 25.0 L MCHC 33.1 RDW 14.8 H Plt Count 362 Seg Neutrophils % 74.9 Lymphocytes % 12.7 L Monocytes % 9.7 Eosinophils % 1.9 Basophils % 0.8 Absolute Neutrophils 9.6 H Absolute Lymphocytes 1.6 Absolute Monocytes 1.2 Absolute Eosinophils 0.2 Absolute Basophils 0.1 Sodium Potassium Chloride Carbon Dioxide Anion Gap BUN Creatinine Est GFR ( Amer) Est GFR (Non-Af Amer) Glucose Calcium Phosphorus 4.5 Magnesium Total Bilirubin 0.5 AST 30 ALT 49 Alkaline Phosphatase 129 H Total Protein 7.1 Albumin 2.9 L 02/25/18 06:20 WBC RBC Hgb Hct MCV MCH MCHC RDW Plt Count Seg Neutrophils % Lymphocytes % Monocytes % Eosinophils % Basophils % Absolute Neutrophils Absolute Lymphocytes Absolute Monocytes Absolute Eosinophils Absolute Basophils Sodium 140.2 Potassium 4.5 Chloride 102 Carbon Dioxide 30 Anion Gap 8 BUN 13 Creatinine 0.94 Est GFR ( Amer) > 60 Est GFR (Non-Af Amer) > 60 Glucose 110 Calcium 8.5 Phosphorus Magnesium 2.0 Total Bilirubin AST ALT Alkaline Phosphatase Total Protein Albumin Impressions: Scrotum Ultrasound 02/23/18 00:00 IMPRESSION: NORMAL TESTES WITHOUT MASS OR TORSION. BILATERAL HYDROCELES. SCROTAL WALL THICKENING WITHOUT ABSCESS IDENTIFIED. Pelvis CT 02/24/18 07:00 IMPRESSION: Extensive adenopathy suspicious for lymphoma. Assessment & Plan - Diagnosis (1) Lymphadenopathy Is this a current diagnosis for this admission?: Yes Plan: Concerning for malignancy, awaiting labs that was sent, patient will have imaging done today, will follow that up as well. Awaiting excisional biopsy as well.
--- NOTE | 2018-02-25 09:13 | PDOC PROGRESS REPORT ---
Subjective Progress Note for:: 02/25/18 Subjective:: This is a 28-year-old male with scrotal swelling and bilateral inguinal lymphadenopathy. Today, the patient denies chest pain, shortness of breath, abdominal pain, orthostasis, melena, hematochezia, nausea, vomiting, dizziness, or blurry vision. Patient has reported subjective fevers and chills. Reason For Visit: SCROTAL CELLULITIS Physical Exam Vital Signs: Temp Pulse Resp BP Pulse Ox 98.7 F 83 18 108/60 96 02/25/18 04:36 02/25/18 04:36 02/25/18 04:36 02/25/18 04:36 02/25/18 04:36 Intake & Output 02/24/18 02/25/18 02/26/18 06:59 06:59 06:59 Intake Total 1000 1260 Balance 1000 1260 Weight 105.1 kg 105.6 kg General appearance: PRESENT: no acute distress Head exam: PRESENT: atraumatic, normocephalic Eye exam: PRESENT: EOMI, PERRLA. ABSENT: conjunctival injection, scleral icterus Teeth exam: ABSENT: dental caries, poor dentation Neck exam: ABSENT: tenderness, thyromegaly, tracheal deviation Respiratory exam: PRESENT: clear to auscultation ever. ABSENT: accessory muscle use, chest wall tenderness, rales, rhonchi, stridor, tachypnea, wheezes Cardiovascular exam: PRESENT: RRR Pulses: PRESENT: +2 pedal pulses bilateral Vascular exam: PRESENT: normal capillary refill. ABSENT: pallor GI/Abdominal exam: PRESENT: normal bowel sounds, soft. ABSENT: distended, guarding, hernia, tenderness Gentrourinary exam: PRESENT: erythema - Scrotal, scrotal swelling. ABSENT: testicular tenderness Extremities exam: ABSENT: clubbing Musculoskeletal exam: ABSENT: deformity Neurological exam: PRESENT: alert, awake, oriented to person, oriented to place , oriented to time, oriented to situation, CN II-XII grossly intact. ABSENT: motor sensory deficit Psychiatric exam: PRESENT: appropriate affect. ABSENT: agitated, anxious, depressed Skin exam: ABSENT: jaundice Additional comments: Lymph: Palpable, enlarged lymphadenopathy in bilateral groin. Results Laboratory Results: 02/25/18 06:20 02/25/18 06:20 02/24/18 02/24/18 02/25/18 12:53 18:39 06:20 WBC 12.8 H RBC 4.17 L Hgb 10.4 L Hct 31.5 L MCV 75 L MCH 25.0 L MCHC 33.1 RDW 14.8 H Plt Count 362 Seg Neutrophils % 74.9 Lymphocytes % 12.7 L Monocytes % 9.7 Eosinophils % 1.9 Basophils % 0.8 Absolute Neutrophils 9.6 H Absolute Lymphocytes 1.6 Absolute Monocytes 1.2 Absolute Eosinophils 0.2 Absolute Basophils 0.1 Sodium Potassium Chloride Carbon Dioxide Anion Gap BUN Creatinine Est GFR ( Amer) Est GFR (Non-Af Amer) Glucose Calcium Phosphorus 4.5 Magnesium Total Bilirubin 0.5 AST 30 ALT 49 Alkaline Phosphatase 129 H Total Protein 7.1 Albumin 2.9 L 02/25/18 06:20 WBC RBC Hgb Hct MCV MCH MCHC RDW Plt Count Seg Neutrophils % Lymphocytes % Monocytes % Eosinophils % Basophils % Absolute Neutrophils Absolute Lymphocytes Absolute Monocytes Absolute Eosinophils Absolute Basophils Sodium 140.2 Potassium 4.5 Chloride 102 Carbon Dioxide 30 Anion Gap 8 BUN 13 Creatinine 0.94 Est GFR ( Amer) > 60 Est GFR (Non-Af Amer) > 60 Glucose 110 Calcium 8.5 Phosphorus Magnesium 2.0 Total Bilirubin AST ALT Alkaline Phosphatase Total Protein Albumin Impressions: Scrotum Ultrasound 02/23/18 00:00 IMPRESSION: NORMAL TESTES WITHOUT MASS OR TORSION. BILATERAL HYDROCELES. SCROTAL WALL THICKENING WITHOUT ABSCESS IDENTIFIED. Pelvis CT 02/24/18 07:00 IMPRESSION: Extensive adenopathy suspicious for lymphoma. Assessment & Plan - Diagnosis (1) Lymphadenopathy Is this a current diagnosis for this admission?: Yes - Plan Summary Plan Summary: This is a 28-year-old male with suspicious bilateral inguinal lymphadenopathy and scrotal swelling. There is significant concern for lymphoma. I have offered the patient for node biopsy in an effort to secure a diagnosis. The patient has agreed to this. Risks/benefits discussed, informed consent obtained , and all questions answered.
[2018-02-25] MEDS: ENOXAPARIN SODIUM INJ 40 MG/0.4 ML DISP.SYRIN SUBCUT SCH (10:21)
[2018-02-25] MEDS: DOXYCYCLINE HYCLATE 100 MG TABLET PO SCH ×2 (10:28→21:39)
[2018-02-25] MEDS ORDERED: BUPIVACAINE HCL 0.25 % INJ/PF (2.5 MG/1 ML) 30 ML VIAL ONE (11:24)
[2018-02-25] MEDS ORDERED: LIDOCAINE 1% INJ-PF (10 MG/ML) 30 ML SDV ONE (11:24)
--- NOTE | 2018-02-25 11:40 | RADIOLOGY REPORT (SQ) ---
EXAM DESCRIPTION: CT ABDOMEN IV CONTRAST ONLY COMPLETED DATE/TIME: 02/25/2018 10:56 am REASON FOR STUDY: Lymphedema COMPARISON: None. TECHNIQUE: CT scan of the abdomen performed with intravenous and without oral contrast using helical scanning technique with dynamic intravenous contrast injection. Images reviewed with lung, soft tiss ue, and bone windows. Reconstructed coronal and sagittal MPR images reviewed. Delayed images for eval uation of the urinary system also acquired and evaluated. All images stored on PACS. All CT scanners at this facility use dose modulation, iterative reconstruc tion, and/or weight based dosing when appropriate to reduce radiation dose to as low as reasonably ac hievable (ALARA). [facility]: Dose Right [facility]: CareDose [facility]: Dose Right [facility]: Teradose 4D [facility]: [employer] CONTRAST TYPE AND DOSE: contrast/concentration: Isovue 370.00 mg/ml; Total Contrast Delivered: 100.0 ml; Total Saline Delivered: 72.0 ml RENAL FUNCTION: None required. The patient is less than 50 years old. RADIATION DOSE: CT Rad equipment meets quality standard of care and radiation dose reduction techniq ues were employed. CTDIvol: 9.1 - 12.8 mGy. DLP: 1330 mGy-cm. . LIMITATIONS: None. FINDINGS: LOWER CHEST: See separate report of the CT of the chest. LIVER: Normal size. No masses. No dilated ducts. SPLEEN: Upper limits normal in size. No focal lesions. PANCREAS: No masses. No significant calcifications. No adjacent inflammation or peripancreatic fluid collections. Pancreatic duct not dilated. GALLBLADDER: No identified stones by CT criteria. No inflammatory changes to suggest cholecystitis. ADRENAL GLANDS: No significant masses or asymmetry. RIGHT KIDNEY AND URETER: No solid masses. No significant calcifications. No hydronephrosis or hyd roureter. LEFT KIDNEY AND URETER: No solid masses. No significant calcifications. No hydronephrosis or hydr oureter. AORTA AND VESSELS: No aneurysm. No dissection. Renal arteries, SMA, celiac without stenosis. RETROPERITONEUM: Retroperitoneal adenopathy. Largest node to left of midline measuring about 2 cm in diameter. BOWEL AND PERITONEAL CAVITY: No masses or inflammatory changes. No free fluid or peritoneal masses. APPENDIX: Not visualized. ABDOMINAL WALL: No masses. No hernias. BONES: No significant or acute findings. OTHER: No other significant finding. IMPRESSION: Retroperitoneal adenopathy. Borderline splenomegaly. TECHNICAL DOCUMENTATION: JOB ID: [id number] Quality ID # [id number]: Final reports with documentation of one or more dose reduction techniques (e.g., Au tomated exposure control, adjustment of the mA and/or kV according to patient size, use of iterative reconstruction technique) 2010 [employer]- All Rights Reserved Reading location - IP/workstation name: [email or web address] [id number]
[2018-02-25] MEDS: FAMOTIDINE 20 MG TABLET PO PRN ×2 (11:51→21:40)
--- NOTE | 2018-02-25 11:54 | RADIOLOGY REPORT (SQ) ---
EXAM DESCRIPTION: CT CHEST WITH COMPLETED DATE/TIME: 02/25/2018 10:56 am REASON FOR STUDY: Lymphedema COMPARISON: None. TECHNIQUE: CT scan of the chest performed using helical scanning technique with dynamic intravenous contrast injection. Images reviewed with lung, soft tissue and bone windows. Reconstructed coronal and sagittal MPR images reviewed. All images stored on PACS. All CT scanners at this facility use dose modulation, iterative reconstruction, and/or weight based d osing when appropriate to reduce radiation dose to as low as reasonably achievable (ALARA). [facility]: Dose Right [facility]: CareDose [facility]: Dose Right [facility]: Teradose 4D [facility]: [employer] CONTRAST TYPE AND DOSE: See separate report of the same date. RENAL FUNCTION: None required. The patient is less than 50 years old. RADIATION DOSE: . LIMITATIONS: None. FINDINGS: LUNGS AND PLEURA: 3 mm pleural-based nodule in the middle lobe image 68. No effusions. HILAR AND MEDIASTINAL STRUCTURES: No identified masses or abnormal nodes. HEART AND VASCULAR STRUCTURES: No aneurysm or dissection. No central pulmonary emboli. No pericardi al effusion. HARDWARE: None in the chest. UPPER ABDOMEN: See separate report of the CT of the abdomen. THYROID AND OTHER SOFT TISSUES: No masses. No adenopathy. BONES: No significant finding. OTHER: No other significant finding. IMPRESSION: Less than 4 mm nodule in the right middle lobe. TECHNICAL DOCUMENTATION: JOB ID: [id number] Quality ID # [id number]: Final reports with documentation of one or more dose reduction techniques (e.g., Au tomated exposure control, adjustment of the mA and/or kV according to patient size, use of iterative reconstruction technique) 2010 [employer]- All Rights Reserved Reading location - IP/workstation name: [email or web address]
[2018-02-25] MEDS ORDERED: MIDAZOLAM 2 MG/2 ML INJ ONE (16:22)
[2018-02-25] MEDS ORDERED: LIDOCAINE 2% INJ-PF (20 MG/ML) 10 ML AMPUL ONE (16:22)
[2018-02-25] MEDS ORDERED: FENTANYL CITRATE INJ/PF 100 MCG/2 ML AMPUL ONE (16:22)
[2018-02-25] MEDS ORDERED: ONDANSETRON HCL INJ/PF 4 MG/2 ML SDV ONE (16:23)
[2018-02-25] MEDS ORDERED: DEXAMETHASONE SOD PHOSPHATE INJ 4 MG/1 ML VIAL ONE (16:23)
[2018-02-25] MEDS ORDERED: PROPOFOL INJ 200 MG/20 ML VIAL IV ONE (16:23)
--- NOTE | 2018-02-25 16:28 | PDOC PROGRESS REPORT ---
Subjective Progress Note for:: 02/25/18 Subjective:: The patient is a 28-year-old male with a past medical history significant only for GERD who was admitted on 02/21/18 for scrotal cellulitis. His symptoms have been unresponsive to antibiotic therapy. A CT of the pelvis was obtained; demonstrating bilateral inguinal adenopathy, retroperitoneal and left external iliac adenopathy concerning for lymphoma or testicular cancer. The patient is scheduled to have an incisional lymph node biopsy today. He is seen on rounds; he is found resting in bed comfortably on room air. He reports that the scrotal edema and erythema is unchanged, he reports slight decrease in swelling to the base of the penis. He denies pain. He denies fever, chills, body aches, chest pain, palpitations, dyspnea, abdominal pain, nausea vomiting and diarrhea. He is anxious about his scheduled biopsy for later on today, but otherwise has no questions or concerns. Reason For Visit: SCROTAL CELLULITIS Physical Exam Vital Signs: Temp Pulse Resp BP Pulse Ox 98.5 F 80 20 107/66 97 02/25/18 11:58 02/25/18 11:58 02/25/18 11:58 02/25/18 11:58 02/25/18 11:58 Intake & Output 02/24/18 02/25/18 02/26/18 06:59 06:59 06:59 Intake Total 1000 1260 Balance 1000 1260 Weight 105.1 kg 105.6 kg General appearance: PRESENT: no acute distress, well-developed, well-nourished, other - Overweight Head exam: PRESENT: atraumatic, normocephalic Eye exam: PRESENT: conjunctiva pink, EOMI, PERRLA. ABSENT: scleral icterus Ear exam: PRESENT: normal external ear exam Mouth exam: PRESENT: moist, tongue midline Neck exam: ABSENT: carotid bruit, JVD, lymphadenopathy, thyromegaly Respiratory exam: PRESENT: clear to auscultation ever, symmetrical, unlabored. ABSENT: rales, rhonchi, wheezes Cardiovascular exam: PRESENT: RRR, +S1, +S2. ABSENT: diastolic murmur, rubs, systolic murmur Pulses: PRESENT: normal dorsalis pedis pul Vascular exam: PRESENT: normal capillary refill GI/Abdominal exam: PRESENT: normal bowel sounds, soft. ABSENT: distended, guarding, mass, organolmegaly, rebound, tenderness Rectal exam: PRESENT: deferred Gentrourinary exam: PRESENT: erythema, scrotal swelling. ABSENT: lesions, testicular tenderness, urethral discharge Extremities exam: PRESENT: full ROM. ABSENT: calf tenderness, clubbing, pedal edema Neurological exam: PRESENT: alert, awake, oriented to person, oriented to place , oriented to time, oriented to situation, CN II-XII grossly intact. ABSENT: motor sensory deficit Psychiatric exam: PRESENT: appropriate affect, normal mood. ABSENT: homicidal ideation, suicidal ideation Skin exam: PRESENT: dry, intact, warm. ABSENT: cyanosis, rash Results Laboratory Results: 02/25/18 06:20 02/25/18 06:20 02/24/18 02/25/18 02/25/18 18:39 06:20 06:20 WBC 12.8 H RBC 4.17 L Hgb 10.4 L Hct 31.5 L MCV 75 L MCH 25.0 L MCHC 33.1 RDW 14.8 H Plt Count 362 Seg Neutrophils % 74.9 Lymphocytes % 12.7 L Monocytes % 9.7 Eosinophils % 1.9 Basophils % 0.8 Absolute Neutrophils 9.6 H Absolute Lymphocytes 1.6 Absolute Monocytes 1.2 Absolute Eosinophils 0.2 Absolute Basophils 0.1 Sodium 140.2 Potassium 4.5 Chloride 102 Carbon Dioxide 30 Anion Gap 8 BUN 13 Creatinine 0.94 Est GFR ( Amer) > 60 Est GFR (Non-Af Amer) > 60 Glucose 110 Calcium 8.5 Phosphorus 4.5 Magnesium 2.0 Impressions: Scrotum Ultrasound 02/23/18 00:00 IMPRESSION: NORMAL TESTES WITHOUT MASS OR TORSION. BILATERAL HYDROCELES. SCROTAL WALL THICKENING WITHOUT ABSCESS IDENTIFIED. Pelvis CT 02/24/18 07:00 IMPRESSION: Extensive adenopathy suspicious for lymphoma. Abdomen CT 02/25/18 00:00 IMPRESSION: Retroperitoneal adenopathy. Borderline splenomegaly. Chest CT 02/25/18 00:00 IMPRESSION: Less than 4 mm nodule in the right middle lobe. Assessment & Plan - Diagnosis (1) Lymphadenopathy Is this a current diagnosis for this admission?: Yes Plan: Pelvic CT (02/24/18) reveals bilateral inguinal adenopathy, retroperitoneal and left external iliac adenopathy. Suspicious for lymphoma versus testicular malignancy. Chest CT (02/25/18) demonstrates a 4 mm nodule to the right middle lobe but is otherwise unremarkable. Abdominal CT (02/25/18) reveals retroperitoneal adenopathy and borderline splenomegaly. LDH is elevated to 1342. Leukemia/lymphoma panel pending. Flow cytometry pending. The patient is undergoing a incisional lymph node biopsy by Dr. Jesus this afternoon. Oncology has been consulted. (2) Cellulitis of scrotum Is this a current diagnosis for this admission?: Yes Plan: Unclear etiology. Cellulitis versus malignancy. The patient presented with a three-week history of erythema of the scrotum progressing to include edema of the penis. He denies penile discharge or recent STI exposure. He denies fever, pain, dysuria. He does continue to have leukocytosis (WBCs 12.8) which is unchanged despite escalation of IV antibiotics to include doxycycline and Zosyn for coverage of MRSA as well as STI's. Dr. Alamo (urology) was consulted; appreciate his evaluation and recommendations. Oncology has also been consulted; appreciate Dr. Herzog's evaluation and recommendations. (3) GERD (gastroesophageal reflux disease) Is this a current diagnosis for this admission?: Yes Plan: Continue Pepcid. - Time Time Spent with patient: 15-24 minutes Medications reviewed and adjusted accordingly: Yes Anticipated discharge: Home - Inpatient Certification Based on my medical assessment, after consideration of the patient's comorbidities, presenting symptoms, or acuity I expect that the services needed warrant INPATIENT care.: Yes I certify that my determination is in accordance with my understanding of Medicare's requirements for reasonable and necessary INPATIENT services [42 CFR 412.3e].: Yes Medical Necessity: Risk of Diagnosis Which Will Require Inpatient Eval/Care/ Monitoring
[2018-02-25] MEDS ORDERED: MEPERIDINE HCL/PF INJ 25 MG/1 ML DISP.SYRIN IV PRN (17:06)
[2018-02-25] MEDS ORDERED: ONDANSETRON HCL INJ/PF 4 MG/2 ML SDV IV PRN (17:06)
[2018-02-25] MEDS ORDERED: MORPHINE SULFATE 10 MG/ML INJ IV PRN (17:06)
[2018-02-25] MEDS ORDERED: PROMETHAZINE HCL INJ 25 MG/1 ML VIAL IV PRN ×2 (17:06)
[2018-02-25] MEDS ORDERED: DIPHENHYDRAMINE HCL 50 MG/ML VIAL IV PRN (17:06)
[2018-02-25] MEDS ORDERED: FENTANYL CITRATE INJ/PF 100 MCG/2 ML AMPUL IV PRN ×3 (17:06)
--- NOTE | 2018-02-25 18:37 | Operative Report ---
Nonrecallable Operative Report DATE OF SURGERY: 02/25/18 PREOPERATIVE DIAGNOSIS: Lymphadenopathy POSTOPERATIVE DIAGNOSIS: Lymphadenopathy OPERATION: 1. excisional biopsy of left groin lymph node. 2. Intermediate closure of 4 cm left groin incision SURGEON: DIONISIO MONROY ANESTHESIA: LMAC TISSUE REMOVED OR ALTERED: Left inguinal lymph node COMPLICATIONS: None apparent ESTIMATED BLOOD LOSS: Minimal PROCEDURE: Drains/implants: None. After informed consent was obtained, the patient was brought into the operating room and laid in the supine position. The area of the bilateral groins were prepped and draped in the normal sterile fashion. A 15 blade scalpel was used to create a 4 cm incision in the left groin after lidocaine/Marcaine was injected. Dissection was carried through the subcutaneous tissue using sharp and blunt dissection. A significantly enlarged left groin lymph node was identified. It was freed from the surrounding tissue using sharp and blunt dissection. The stalk of the lymph node was ligated using 3-0 Vicryl suture. The lymph node was completely excised and removed from the patient. It was sent to pathology for examination. Hemostasis was achieved. The subcutaneous tissue was closed using 3-0 Vicryl suture in simple running fashion. The overlying skin was closed using 4-0 Vicryl Rapide suture in subcuticular fashion. All sponge, instrument, and needle counts were correct 2. A dressing was fashioned and the procedure was concluded. Condition: Fair.
[2018-02-26] MEDS: PIPERACILLIN SODIUM/TAZOBACTAM 3.375 GM in NORMAL SALINE 100 ML IV SCH ×2 (05:57→11:52)
[2018-02-26] MEDS: LANSOPRAZOLE 30 MG TAB.RAP.DR PO SCH (05:57)
[2018-02-26 07:02] LABS: ABSOLUTE LYMPHOCYTES (AUTO) 1.1 10^3/uL (0.5-4.7); ABSOLUTE MONOCYTES (AUTO) 0.9 10^3/uL (0.1-1.4); ABSOLUTE NEUT (AUTO) 15.2 10^3/uL (1.7-8.2); BASOPHILS % (AUTO) 0.1 % (0-2); EOSINOPHILS % (AUTO) 0.1 % (0-6); HEMATOCRIT 34.5 % (37.9-51.0); HEMOGLOBIN 11.3 g/dL (13.5-17.0); LYMPHOCYTES % (AUTO) 6.4 % (13-45); MEAN CORPUSCULAR HGB CONC 32.8 g/dL (32.0-36.0); MEAN CORPUSCULAR VOLUME 76 fl (80-97); MONOCYTES % (AUTO) 5.4 % (3-13); PLATELET COUNT 393 10^3/uL (150-450); RED BLOOD COUNT 4.54 10^6/uL (4.35-5.55); RED CELL DISTRIBUTION WIDTH 14.2 % (11.5-14.0); TOTAL CELLS COUNTED % (AUTO) 100 %; WHITE BLOOD COUNT 17.3 10^3/uL (4.0-10.5)
--- NOTE | 2018-02-26 07:05 | PDOC PROGRESS REPORT ---
Subjective Reason For Visit: SCROTAL CELLULITIS Physical Exam Vital Signs: Temp Pulse Resp BP Pulse Ox 97.5 F 56 L 18 114/74 98 02/26/18 03:47 02/26/18 03:47 02/26/18 03:47 02/26/18 03:47 02/26/18 03:47 Intake & Output 02/25/18 02/26/18 02/27/18 06:59 06:59 06:59 Intake Total 1260 650 Output Total 2 Balance 1260 648 Weight 105.6 kg 104.2 kg Results Laboratory Results: 02/26/18 06:42 02/25/18 02/25/18 02/26/18 06:20 06:20 06:42 WBC 17.3 H RBC 4.54 Hgb 11.3 L Hct 34.5 L MCV 76 L MCH 25.0 L MCHC 32.8 RDW 14.2 H Plt Count 393 Seg Neutrophils % 88.0 H Lymphocytes % 6.4 L Monocytes % 5.4 Eosinophils % 0.1 Basophils % 0.1 Absolute Neutrophils 15.2 H Absolute Lymphocytes 1.1 Absolute Monocytes 0.9 Absolute Eosinophils 0.0 Absolute Basophils 0.0 Sodium 140.2 Potassium 4.5 Chloride 102 Carbon Dioxide 30 Anion Gap 8 BUN 13 Creatinine 0.94 Est GFR ( Amer) > 60 Est GFR (Non-Af Amer) > 60 Glucose 110 Calcium 8.5 Phosphorus 4.6 H Magnesium 2.0 02/21/18 03:04 Blood Blood Culture - Final NO GROWTH IN 5 DAYS Impressions: Scrotum Ultrasound 02/23/18 00:00 IMPRESSION: NORMAL TESTES WITHOUT MASS OR TORSION. BILATERAL HYDROCELES. SCROTAL WALL THICKENING WITHOUT ABSCESS IDENTIFIED. Pelvis CT 02/24/18 07:00 IMPRESSION: Extensive adenopathy suspicious for lymphoma. Abdomen CT 02/25/18 00:00 IMPRESSION: Retroperitoneal adenopathy. Borderline splenomegaly. Chest CT 02/25/18 00:00 IMPRESSION: Less than 4 mm nodule in the right middle lobe. Assessment & Plan - Diagnosis (1) Lymphadenopathy Is this a current diagnosis for this admission?: Yes - Plan Summary Plan Summary: Status post lymph node biopsy of the left groin. The surgical site appears to be intact. There is no overt bruising or swelling in the area. Patient may ambulate as tolerated. He is okay to shower starting tomorrow. Nonstrenuous activity should be maintained for 1 week. Follow-up in my office in 2 weeks for follow-up. Pathology is pending.
[2018-02-26 07:07] LABS: ANION GAP 9 (5-19); BLOOD UREA NITROGEN 12 mg/dL (7-20); CALCIUM 8.8 mg/dL (8.4-10.2); CARBON DIOXIDE 30 mmol/L (22-30); CHLORIDE 103 mmol/L (98-107); GLUCOSE 169 mg/dL (75-110); POTASSIUM 4.4 mmol/L (3.6-5.0); SODIUM 141.6 mmol/L (137-145)
--- NOTE | 2018-02-26 08:49 | PDOC PROGRESS REPORT ---
Subjective Progress Note for:: 02/26/18 Subjective:: LN excision done, pt notes scrotum swelling has improved, redness improved. Reason For Visit: SCROTAL CELLULITIS Physical Exam Vital Signs: Temp Pulse Resp BP Pulse Ox 97.6 F 65 16 111/62 100 02/26/18 08:02 02/26/18 08:02 02/26/18 08:02 02/26/18 08:02 02/26/18 08:02 Intake & Output 02/25/18 02/26/18 02/27/18 06:59 06:59 06:59 Intake Total 1260 650 Output Total 2 Balance 1260 648 Weight 105.6 kg 104.2 kg General appearance: PRESENT: no acute distress, well-developed, well-nourished Head exam: PRESENT: atraumatic, normocephalic Eye exam: PRESENT: conjunctiva pink, EOMI, PERRLA. ABSENT: scleral icterus Ear exam: PRESENT: normal external ear exam Mouth exam: PRESENT: moist, tongue midline Neck exam: ABSENT: carotid bruit, JVD, lymphadenopathy, thyromegaly Respiratory exam: PRESENT: clear to auscultation ever. ABSENT: rales, rhonchi, wheezes Cardiovascular exam: PRESENT: RRR. ABSENT: diastolic murmur, rubs, systolic murmur Pulses: PRESENT: normal dorsalis pedis pul Vascular exam: PRESENT: normal capillary refill GI/Abdominal exam: PRESENT: normal bowel sounds, soft. ABSENT: distended, guarding, mass, organolmegaly, rebound, tenderness Rectal exam: PRESENT: deferred Extremities exam: PRESENT: full ROM. ABSENT: calf tenderness, clubbing, pedal edema Neurological exam: PRESENT: alert, awake, oriented to person, oriented to place , oriented to time, oriented to situation, CN II-XII grossly intact. ABSENT: motor sensory deficit Psychiatric exam: PRESENT: appropriate affect, normal mood. ABSENT: homicidal ideation, suicidal ideation Skin exam: PRESENT: dry, intact, warm. ABSENT: cyanosis, rash Results Laboratory Results: 02/26/18 06:42 02/26/18 06:42 02/25/18 02/26/18 02/26/18 06:20 06:42 06:42 WBC 17.3 H RBC 4.54 Hgb 11.3 L Hct 34.5 L MCV 76 L MCH 25.0 L MCHC 32.8 RDW 14.2 H Plt Count 393 Seg Neutrophils % 88.0 H Lymphocytes % 6.4 L Monocytes % 5.4 Eosinophils % 0.1 Basophils % 0.1 Absolute Neutrophils 15.2 H Absolute Lymphocytes 1.1 Absolute Monocytes 0.9 Absolute Eosinophils 0.0 Absolute Basophils 0.0 Sodium 141.6 Potassium 4.4 Chloride 103 Carbon Dioxide 30 Anion Gap 9 BUN 12 Creatinine 0.76 Est GFR ( Amer) > 60 Est GFR (Non-Af Amer) > 60 Glucose 169 H Calcium 8.8 Phosphorus 4.6 H Magnesium 2.1 02/21/18 03:04 Blood Blood Culture - Final NO GROWTH IN 5 DAYS Impressions: Scrotum Ultrasound 02/23/18 00:00 IMPRESSION: NORMAL TESTES WITHOUT MASS OR TORSION. BILATERAL HYDROCELES. SCROTAL WALL THICKENING WITHOUT ABSCESS IDENTIFIED. Pelvis CT 02/24/18 07:00 IMPRESSION: Extensive adenopathy suspicious for lymphoma. Abdomen CT 02/25/18 00:00 IMPRESSION: Retroperitoneal adenopathy. Borderline splenomegaly. Chest CT 02/25/18 00:00 IMPRESSION: Less than 4 mm nodule in the right middle lobe. Assessment & Plan - Diagnosis (1) Lymphadenopathy Is this a current diagnosis for this admission?: Yes Plan: Concerning for lymphoma type process, another inflammatory dx possible, testicular markers all negative so that is not likely diagnosis, flow cytometry pending, will be back by next week. Ok from onc standpoint to d/c home and plan for f/u in 1 wk in our office. I asked nursing to check w/ hospitalist team about whether atbx course needed at home. Per nursing, surgery apparently has cleared pt for d/c and will f/u as outpt w/ them also
[2018-02-26] MEDS: FAMOTIDINE 20 MG TABLET PO PRN (10:25)
[2018-02-26] MEDS: DOXYCYCLINE HYCLATE 100 MG TABLET PO SCH (10:25)
[2018-02-26] MEDS: ENOXAPARIN SODIUM INJ 40 MG/0.4 ML DISP.SYRIN SUBCUT SCH (10:27)
[2018-02-26 13:50] VITALS: BP 107/66
--- NOTE | 2018-02-26 16:42 | PDOC DISCHARGE SUMMARY ---
General - Admit/Disc Date/PCP Admission Date/Primary Care Provider: 02/21/18 02:25 Discharge Date: 02/26/18 - Discharge Diagnosis (1) Lymphadenopathy Is this a current diagnosis for this admission?: Yes Summary: The patient presented with erythema and edema to his scrotum and base of penis concerning for cellulitis. Urology was consulted who ordered a pelvic CT revealing lymphadenopathy. At this time, primary differential is lymphoma. Pelvic CT (02/24/18) reveals bilateral inguinal adenopathy, retroperitoneal and left external iliac adenopathy. Suspicious for lymphoma versus testicular malignancy. Chest CT (02/25/18) demonstrates a 4 mm nodule to the right middle lobe but is otherwise unremarkable. Abdominal CT (02/25/18) reveals retroperitoneal adenopathy and borderline splenomegaly. LDH is elevated to 1342. Leukemia/lymphoma panel pending. Flow cytometry pending. The patient underwent an incisional lymph node biopsy with Dr. Jesus on . Pathology is pending. Oncology is consulted; Dr. Herzog is concerned it patient is showing evidence of lymphoma. Plan is for patient follow-up in the office next week once pathology results are available. The patient is discharged home in stable condition. He is currently pain-free. He is aware of his differential diagnosis and the necessity for close follow- up with primary care and Dr. Herzog. (2) Cellulitis of scrotum Is this a current diagnosis for this admission?: Yes Summary: Unclear etiology. Cellulitis versus malignancy. The patient presented with a three-week history of erythema of the scrotum progressing to include edema of the penis. He denies penile discharge or recent STI exposure. He has had persistent leukocytosis (WBCs 12.8) despite escalation of IV antibiotics to include doxycycline and Zosyn for coverage of MRSA as well as STI 's. However, erythema and edema have nearly resolved. Of note, WBC of 17 today is secondary to inflammation following surgical biopsy completed yesterday. The patient is afebrile and pain-free. The patient is discharged with Augmentin and doxycycline. He is encouraged follow-up with primary care provider. He is advised to report worsening symptoms, especially if associated with fever, to his physician. He is also advised that he may return to emergency department anytime for worrisome symptoms. (3) GERD (gastroesophageal reflux disease) Is this a current diagnosis for this admission?: Yes - Additional Information Resuscitation Status: Full Code Discharge Diet: Regular Discharge Activity: Activity As Tolerated, Balance Activity w/Rest, No Driving, No Lifting Over 10 Pounds, No Lifting/Push/Pulling, No tub bath Prescriptions: Amoxicillin/Potassium Clav [Augmentin 500-125 Tablet] 1 each PO Q8H #10 tablet Doxycycline Hyclate [Vibramycin 100 mg Tablet] 100 mg PO Q12 #20 tablet Home Medications: Multivitamin [Tab-A-Sita (Multiple Vitamin) Tablet] 1 tab PO DAILY 02/21/18 Ranitidine HCl [Zantac 150 mg Tablet] 150 mg PO DAILY 02/21/18 Amoxicillin/Potassium Clav [Augmentin 500-125 Tablet] 1 each PO Q8H #10 tablet 02/26/18 Doxycycline Hyclate [Vibramycin 100 mg Tablet] 100 mg PO Q12 #20 tablet History of Present Illness History of Present Illness: Per H&P by Dr. Jalloh: QUINN TREVINO is a 28 year old male patient who does not have significant medical history presents with one-week history of scrotal swelling and redness. He reports initially it started as a small papule which spread to the rest of his scrotum diffusely. His initial blood workup shows mild leukocytosis of 12.5 otherwise nonrevealing. Scrotal ultrasound reported as edema and hyperemia of the scrotal soft tissue with possible 1.5 cm heterogeneous fluid collection in the left scrotal soft tissue. These findings could be seen with cellulitis and soft tissue developing abscess. This finding could be also associated with Fourier's gangrene. On physical examination he has diffuse hyperemia and tenderness of his scrotum and some degree of hyperemia or so on his left eye he has also bilateral enlarged lymph nodes marked on the left side which could be reactive lymphadenopathy. Physical Exam Vital Signs: Temp Pulse Resp BP Pulse Ox 97.8 F 72 16 107/66 99 02/26/18 13:43 02/26/18 13:43 02/26/18 13:43 02/26/18 13:43 02/26/18 13:43 Intake & Output 02/25/18 02/26/18 02/27/18 06:59 06:59 06:59 Intake Total 1260 650 Output Total 2 Balance 1260 648 Weight 105.6 kg 104.2 kg General appearance: PRESENT: no acute distress, well-developed, well-nourished, other - Overweight Head exam: PRESENT: atraumatic, normocephalic Eye exam: PRESENT: conjunctiva pink, EOMI, PERRLA. ABSENT: scleral icterus Ear exam: PRESENT: normal external ear exam Mouth exam: PRESENT: moist, tongue midline Neck exam: ABSENT: carotid bruit, JVD, lymphadenopathy, thyromegaly Respiratory exam: PRESENT: clear to auscultation ever. ABSENT: rales, rhonchi, wheezes Cardiovascular exam: PRESENT: RRR. ABSENT: diastolic murmur, rubs, systolic murmur Pulses: PRESENT: normal dorsalis pedis pul Vascular exam: PRESENT: normal capillary refill GI/Abdominal exam: PRESENT: normal bowel sounds, soft. ABSENT: distended, guarding, mass, organolmegaly, rebound, tenderness Rectal exam: PRESENT: deferred Gentrourinary exam: PRESENT: scrotal swelling - Improved per patient, other - penis shaft edema; improved per patient. ABSENT: ecchymosis, erythema Extremities exam: PRESENT: full ROM. ABSENT: calf tenderness, clubbing, pedal edema Neurological exam: PRESENT: alert, awake, oriented to person, oriented to place , oriented to time, oriented to situation, CN II-XII grossly intact. ABSENT: motor sensory deficit Psychiatric exam: PRESENT: appropriate affect, normal mood. ABSENT: homicidal ideation, suicidal ideation Skin exam: PRESENT: dry, intact, warm. ABSENT: cyanosis, rash Results Laboratory Results: 02/26/18 06:42 02/26/18 06:42 02/25/18 02/26/18 02/26/18 06:20 06:42 06:42 WBC 17.3 H RBC 4.54 Hgb 11.3 L Hct 34.5 L MCV 76 L MCH 25.0 L MCHC 32.8 RDW 14.2 H Plt Count 393 Seg Neutrophils % 88.0 H Lymphocytes % 6.4 L Monocytes % 5.4 Eosinophils % 0.1 Basophils % 0.1 Absolute Neutrophils 15.2 H Absolute Lymphocytes 1.1 Absolute Monocytes 0.9 Absolute Eosinophils 0.0 Absolute Basophils 0.0 Sodium 141.6 Potassium 4.4 Chloride 103 Carbon Dioxide 30 Anion Gap 9 BUN 12 Creatinine 0.76 Est GFR ( Amer) > 60 Est GFR (Non-Af Amer) > 60 Glucose 169 H Calcium 8.8 Phosphorus 4.6 H Magnesium 2.1 02/21/18 03:04 Blood Blood Culture - Final NO GROWTH IN 5 DAYS Impressions: Scrotum Ultrasound 02/23/18 00:00 IMPRESSION: NORMAL TESTES WITHOUT MASS OR TORSION. BILATERAL HYDROCELES. SCROTAL WALL THICKENING WITHOUT ABSCESS IDENTIFIED. Pelvis CT 02/24/18 07:00 IMPRESSION: Extensive adenopathy suspicious for lymphoma. Abdomen CT 02/25/18 00:00 IMPRESSION: Retroperitoneal adenopathy. Borderline splenomegaly. Chest CT 02/25/18 00:00 IMPRESSION: Less than 4 mm nodule in the right middle lobe. Qualifiers - * PATIENT BEING DISCHARGED WITH ANY OF THE FOLLOWING DIAGNOSIS: No Plan Discharge Plan: Discharge to home with self-care. Follow-up with Dr. Herzog's office next week. Follow-up with the [facility] within 2 weeks.
== END 2018-02-26 15:10 | disposition home or self-care (01) | DRG 825 ==
LOC: ER 21:41 → EH 02-21 02:25 → 2N 02-21 03:34
PROVIDERS: ADMIT Internal Medicine; ATTEND Internal Medicine
PROC: 07BJ0ZX Excision of Left Inguinal Lymphatic, Open Approach, Diagnostic (ICD-10-PCS; principal; 2018-02-25 13:00)
DX: C85.95 Non-Hodgkin lymphoma, unspecified, lymph nodes of inguinal region and lower limb (principal); N49.2 Inflammatory disorders of scrotum; K21.9 Gastro-esophageal reflux disease without esophagitis; R59.1 Generalized enlarged lymph nodes; Z87.891 Personal history of nicotine dependence; Z88.1 Allergy status to other antibiotic agents
CPT/HCPCS: 36415; 400; 71260; 72193; 74160; 76870; 80048; 80053; 80076; 80202; 81001; 82105; 82784; 83615; 83735; 84100; 84702; 85025; 87040; 88184; 88185; 88233; 88262; 88305; 88341; 88342; 93976; 96365; 96366; 96367; 99285; J0295; J0692; J0696; J1100; J1200; J1650; J2250; J2405; J2543; J2704; J3010; J3370; J3490; J7030; J7060

== ENCOUNTER 2018-03-09 11:24 | Inpatient (IN) | payer SELFPAY ==
--- NOTE | 2018-03-09 11:46 | ER Document Report ---
ED Medical Screen (RME) - General Chief Complaint: Penile Problem Stated Complaint: PENILE SWELLING Time Seen by Provider: 03/09/18 11:45 Mode of Arrival: Ambulatory Information source: Patient Notes: 28-year-old man hospitalization for scrotal cellulitis, currently being worked up for possible lymphoma, presents with penile swelling. TRAVEL OUTSIDE OF THE [place] IN LAST 30 DAYS: No - Related Data Allergies/Adverse Reactions: ciprofloxacin [From Cipro] Allergy (Verified 03/09/18 11:28) Past Medical History - Social History Chew tobacco use (# tins/day): No Frequency of alcohol use: None Drug Abuse: None Renal/ Medical History: Denies: Hx Peritoneal Dialysis GI Medical History: Reports: Hx Gastroesophageal Reflux Disease Past Surgical History: Reports: Other - Right inguinal herniorrhaphy 2 as a child - Immunizations History of Influenza Vaccine for 07/2017 - 12/2017 Season: No Physical Exam - Vital signs Vitals: Temp Pulse Resp BP Pulse Ox 98.0 F 110 H 16 130/73 H 96 03/09/18 11:31 03/09/18 11:31 03/09/18 11:31 03/09/18 11:31 03/09/18 11:31 Course - Vital Signs Vital signs: Temp Pulse Resp BP Pulse Ox 98.0 F 110 H 16 130/73 H 96 03/09/18 11:31 03/09/18 11:31 03/09/18 11:31 03/09/18 11:31 03/09/18 11:31
[2018-03-09 12:12] LABS: ABSOLUTE BASOPHILS # (AUTO) 0.1 10^3/uL (0.0-0.2); ABSOLUTE LYMPHOCYTES (AUTO) 1.5 10^3/uL (0.5-4.7); ABSOLUTE MONOCYTES (AUTO) 1.3 10^3/uL (0.1-1.4); BASOPHILS % (AUTO) 0.5 % (0-2); EOSINOPHILS % (AUTO) 0.2 % (0-6); HEMATOCRIT 39.2 % (37.9-51.0); HEMOGLOBIN 12.8 g/dL (13.5-17.0); LYMPHOCYTES % (AUTO) 7.8 % (13-45); MEAN CORPUSCULAR HEMOGLOBIN 24.7 pg (27.0-33.4); MEAN CORPUSCULAR HGB CONC 32.7 g/dL (32.0-36.0); MEAN CORPUSCULAR VOLUME 76 fl (80-97); MONOCYTES % (AUTO) 7.1 % (3-13); PLATELET COUNT 472 10^3/uL (150-450); RED BLOOD COUNT 5.19 10^6/uL (4.35-5.55); RED CELL DISTRIBUTION WIDTH 15.5 % (11.5-14.0); SEGMENTED NEUTROPHILS % (AUTO) 84.4 % (42-78); TOTAL CELLS COUNTED % (AUTO) 100 %
[2018-03-09] MEDS ORDERED: NORMAL SALINE 1000 ML 1,000 ML IV ONE (12:30)
--- NOTE | 2018-03-09 12:30 | ER Document Report ---
ED GI/ - General Chief Complaint: Penile Problem Stated Complaint: PENILE SWELLING Time Seen by Provider: 03/09/18 11:45 Mode of Arrival: Ambulatory Information source: Patient Notes: Patient presents complaining of penile swelling for the past 2 days. Patient was recently admitted to the hospital on the third of this month for scrotal cellulitis and later on had a lymph node biopsy performed on February 25, to aid in evaluating patient for possible lymphoma. The patient was later discharged on February 26. Patient has yet to follow-up with the surgeon who performed the procedure. Patient sees the surgeon on outpatient basis on 03/13/2018. Patient states that he is due to have a PET scan this evening at 530. Patient states that he has had some mild erythema to the scrotum although this is improved as compared to when he was recently admitted. Patient denies any fever or urinary symptoms. Patient does complain of pruritus to the penis. Patient states that he spoke with his oncologist who gave him another prescription for Lasix to help with his penile swelling symptoms. Patient denies any improvement after taking the Lasix. TRAVEL OUTSIDE OF THE [place] IN LAST 30 DAYS: No - HPI Patient complains to provider of: Other - Penile swelling. No: Vomiting Onset: Other - 2 days Timing/Duration: Persistent Quality of pain: No pain Pain Level: Denies Location: Other - Penile swelling Associated symptoms: denies: Dysuria, Fever, Nausea, Urinary hesitancy, Urinary frequency, Urinary retention, Urinary urgency, Vomiting Exacerbated by: Denies Relieved by: Denies Similar symptoms previously: No Recently seen / treated by doctor: Yes - Related Data Allergies/Adverse Reactions: ciprofloxacin [From Cipro] Allergy (Verified 03/09/18 11:28) Past Medical History - General Information source: Patient - Social History Smoking Status: Former Smoker Chew tobacco use (# tins/day): No Frequency of alcohol use: None Drug Abuse: None Lives with: Family Family History: Reviewed & Not Pertinent Patient has suicidal ideation: No Patient has homicidal ideation: No Renal/ Medical History: Denies: Hx Peritoneal Dialysis GI Medical History: Reports: Hx Gastroesophageal Reflux Disease Past Surgical History: Reports: Other - Right inguinal herniorrhaphy 2 as a child Review of Systems - Review of Systems Constitutional: Recent illness - Recently treated for scrotal cellulitis. denies: Fever EENT: No symptoms reported Cardiovascular: No symptoms reported. denies: Chest pain Respiratory: No symptoms reported. denies: Cough, Short of breath Gastrointestinal: No symptoms reported. denies: Abdominal pain, Nausea, Vomiting Genitourinary: Pain - Scrotal erythema, penile swelling. denies: Dysuria Male Genitourinary: See HPI Musculoskeletal: No symptoms reported. denies: Back pain Skin: Other - Erythematous scrotum Hematologic/Lymphatic: No symptoms reported Neurological/Psychological: No symptoms reported Physical Exam - Vital signs Vitals: Temp Pulse Resp BP Pulse Ox 98.0 F 110 H 16 130/73 H 96 03/09/18 11:31 03/09/18 11:31 03/09/18 11:31 03/09/18 11:31 03/09/18 11:31 - General General appearance: Appears well, Alert In distress: None - HEENT Head: Normocephalic, Atraumatic Eyes: Normal Conjunctiva: Normal Nasal: Normal Mouth/Lips: Normal Mucous membranes: Normal Neck: Normal, Supple. No: Lymphadenopathy - Respiratory Respiratory status: No respiratory distress Chest status: Nontender Breath sounds: Normal. No: Rales, Rhonchi, Stridor, Wheezing Chest palpation: Normal - Cardiovascular Rhythm: Tachycardia Heart sounds: S1 appreciated, S2 appreciated Murmur: No - Abdominal Inspection: Normal Distension: No distension Bowel sounds: Normal Tenderness: Nontender - Genitourinary Inspection: Other - swelling to shaft of penis just inferior of the glans, erythema to cephalad portion of the scrotum primarily to the left side, erythema extending up left pubic area Tenderness: Nontender Scrotum: Swelling, Redness - Back Back: Normal, Nontender. No: CVA tenderness - Extremities General upper extremity: Normal inspection, Normal ROM General lower extremity: Normal inspection, Normal ROM - Neurological Neuro grossly intact: Yes Cognition: Normal Rj Coma Scale Eye Opening: Spontaneous Rj Coma Scale Verbal: Oriented [place] Coma Scale Motor: Obeys Commands Rj Coma Scale Total: 15 - Psychological Associated symptoms: Normal affect, Normal mood - Skin Skin Temperature: Warm Skin Moisture: Dry Skin Color: Erythema - Erythematous scrotum and left pubic area Course - Re-evaluation Re-evalutation: 03/09/18 12:[address] Chatman regarding patient presentation evaluation. Recommends obtaining ultrasound results first and then consulting with urology and then Dr. Herzog. 03/09/18 14:[address] Patel 03/09/18 14:[address] Hernandez who agrees to come and examined patient 03/09/18 14:[address] Herzog who feels that patient likely is having some problems with lymphedema and advises giving patient a dose of Lasix 20 mg IV. 03/09/18 15:45 Dr. Hernandez evaluated patient, feels that patient's symptoms are related to scrotal cellulitis and does not recommend giving the dose of Lasix. Dr. Hernandez consulted with Dr. Patel regarding patient presentation. Dr. Hernandez feels that medicine should admit patient. Consulted with who agrees to accept patient for medical floor admission. - Vital Signs Vital signs: Temp Pulse Resp BP Pulse Ox 99.4 F 86 18 115/74 99 03/09/18 17:27 03/09/18 17:27 03/09/18 17:27 03/09/18 17:27 03/09/18 17:27 - Laboratory Result Diagrams: 03/09/18 11:55 03/09/18 11:55 Laboratory results interpreted by me: 03/09/18 03/09/18 03/09/18 11:55 11:55 14:50 WBC 19.0 H Hgb 12.8 L MCV 76 L MCH 24.7 L RDW 15.5 H Plt Count 472 H Seg Neutrophils % 84.4 H Lymphocytes % 7.8 L Absolute Neutrophils 16.0 H Direct Bilirubin 0.5 H Alkaline Phosphatase 168 H Total Protein 8.7 H Urine Protein 100 H Urine Blood MODERATE H 03/09/18 15:58 Labs- Entire Visit 03/09/18 03/09/18 11:55 11:55 WBC 19.0 H RBC 5.19 Hgb 12.8 L Hct 39.2 MCV 76 L MCH 24.7 L MCHC 32.7 RDW 15.5 H Plt Count 472 H Seg Neutrophils % 84.4 H Lymphocytes % 7.8 L Monocytes % 7.1 Eosinophils % 0.2 Basophils % 0.5 Absolute Neutrophils 16.0 H Absolute Lymphocytes 1.5 Absolute Monocytes 1.3 Absolute Eosinophils 0.0 Absolute Basophils 0.1 Sodium 138.1 Potassium 4.4 Chloride 98 Carbon Dioxide 29 Anion Gap 11 BUN 16 Creatinine 0.86 Est GFR ( Amer) > 60 Est GFR (Non-Af Amer) > 60 Glucose 107 Calcium 9.6 Total Bilirubin 0.7 Direct Bilirubin 0.5 H Neonat Total Bilirubin Not Reportable Neonat Direct Bilirubin Not Reportable Neonat Indirect Bili Not Reportable AST 30 ALT 58 Alkaline Phosphatase 168 H Total Protein 8.7 H Albumin 3.7 - Diagnostic Test Radiology reviewed: Reports reviewed - Reviewed ultrasound report from today as well as previous admission diagnostic test results Discharge - Discharge Clinical Impression: Cellulitis of scrotum, Lymphadenopathy Condition: Fair Admitting Provider: Hospitalist Unit Admitted: Medical Floor
[2018-03-09 12:31] LABS: ALANINE AMINOTRANSFERASE 58 U/L (21-72); ALBUMIN 3.7 g/dL (3.5-5.0); ALKALINE PHOSPHATASE 168 U/L (38-126); ANION GAP 11 (5-19); ASPARTATE AMINO TRANSFERASE 30 U/L (17-59); BILIRUBIN,DIRECT 0.5 mg/dL (0.0-0.4); BILIRUBIN,TOTAL 0.7 mg/dL (0.2-1.3); BLOOD UREA NITROGEN 16 mg/dL (7-20); CALCIUM 9.6 mg/dL (8.4-10.2); CARBON DIOXIDE 29 mmol/L (22-30); CHLORIDE 98 mmol/L (98-107); GLUCOSE 107 mg/dL (75-110); POTASSIUM 4.4 mmol/L (3.6-5.0); SODIUM 138.1 mmol/L (137-145); TOTAL PROTEIN 8.7 g/dL (6.3-8.2)
--- NOTE | 2018-03-09 13:26 | RADIOLOGY REPORT (SQ) ---
EXAM DESCRIPTION: U/S SCROTUM W/DOPPLER COMPLETED DATE/TIME: 03/09/2018 1:05 pm REASON FOR STUDY: scrotal erythema, penile swelling COMPARISON: 02/23/2018 and 02/21/2018. TECHNIQUE: Static and realtime james scale imaging of the scrotum and testes. Selected color Doppler and spectral images recorded to document blood flow. LIMITATIONS: None. FINDINGS: RIGHT: TESTICLE: Normal size. Normal echotexture. Normal blood flow. No mass. EPIDIDYMIS: Normal. HYDROCELE OR VARICOCELE: Moderate hydrocele. HERNIA OR EXTRA-TESTICULAR MASS: No. LEFT: TESTICLE: Normal size. Normal echotexture. Normal blood flow. No mass. EPIDIDYMIS: Normal. HYDROCELE OR VARICOCELE: Small to moderate hydrocele. HERNIA OR EXTRA-TESTICULAR MASS: No. OTHER: Again seen is diffuse heterogenous scrotal wall thickening, measuring at least 1 cm. No focal fluid collections. IMPRESSION: 1. AGAIN SEEN IS DIFFUSE HETEROGENOUS SCROTAL WALL THICKENING. NO EVIDENCE OF FOCAL ABSCESS. 2. BILATERAL HYDROCELES. 3. UNREMARKABLE TESTICULAR ULTRASOUND. NO EVIDENCE OF TESTICULAR MASS OR TORSION. TECHNICAL DOCUMENTATION: JOB ID: [id number] [employer]- All Rights Reserved Reading location - IP/workstation name: [email or web address]
[2018-03-09] MEDS ORDERED: FUROSEMIDE INJ/PF 20 MG/2 ML SDV IV ONE (14:55)
[2018-03-09] MEDS ORDERED: ONDANSETRON 4 MG TAB.RAPDIS PO PRN (15:44)
[2018-03-09] MEDS ORDERED: MAG HYDROX/AL HYDROX/SIMETH SUSP 30 ML UDCUP PO PRN (15:44)
[2018-03-09] MEDS ORDERED: ONDANSETRON HCL INJ/PF 4 MG/2 ML SDV IV PRN (15:44)
[2018-03-09] MEDS ORDERED: ALBUTEROL SULFATE 0.083% NEB 2.5 MG/3 ML AMPUL NEB PRN (15:44)
[2018-03-09] MEDS ORDERED: VANCOMYCIN HCL 0 MG in DEXTROSE 5%-WATER 250 ML IV NR (16:00)
--- NOTE | 2018-03-09 16:09 | PDOC CONSULTATION ---
Consultation Consult Date: 03/09/18 Consult reason:: scrotal redness and swellling History of Present Illness Admission Date/PCP: CONRAD LIMA MD History of Present Illness: QUINN TREVINO is a 28 year old male admitted a few weeks ago for scrotal swelling and redness; a CT scan of the pelvis was done with identification of lymphadenopathy. A Left groin LN bx was done approximately 3 weeks ago and it is significant for Hodgkin type lymphoma. The patient was readmitted for persistent scrotal redness, kept in the hospital for 1 week on IV Abx, discharged 1 week ago on Bactrim and Augmentin without improvement. He returns to the ER today with a similar c/o scrotal swelling and heaviness, redness, no pain, swelling of the penis but no erythema noted. Past Medical History GI Medical History: Reports: Gastroesophageal Reflux Disease Past Surgical History Past Surgical History: Reports: Vascular Surgery - Lympectomy groin 2018, Other - Right inguinal herniorrhaphy 2 as a child Social History Smoking Status: Former Smoker Frequency of Alcohol Use: None Hx Recreational Drug Use: No Drugs: None Hx Prescription Drug Abuse: No Family History Family History: Reviewed & Not Pertinent Parental Family History Reviewed: No Children Family History Reviewed: No Sibling(s) Family History Reviewed.: No Medication/Allergy Home Medications: Doxycycline Hyclate [Vibramycin 100 mg Tablet] 100 mg PO Q12 #20 tablet Furosemide [Lasix 20 mg Tablet] 20 mg PO QAM 03/09/18 Omeprazole Magnesium [Prilosec Otc] 20 mg PO DAILY 03/09/18 Allergies/Adverse Reactions: ciprofloxacin [From Cipro] Allergy (Verified 03/09/18 11:28) Physical Exam Vital Signs: Temp Pulse Resp BP Pulse Ox 98.0 F 110 H 16 130/73 H 96 03/09/18 11:31 03/09/18 11:31 03/09/18 11:31 03/09/18 11:31 03/09/18 11:31 Intake & Output 03/08/18 03/09/18 03/10/18 06:59 06:59 06:59 Weight 103.7 kg General appearance: PRESENT: no acute distress, cooperative Eye exam: PRESENT: EOMI Mouth exam: PRESENT: moist Respiratory exam: PRESENT: clear to auscultation ever Cardiovascular exam: PRESENT: RRR GI/Abdominal exam: PRESENT: soft Gentrourinary exam: PRESENT: scrotal swelling - with redmess, penis edematous no erythematous, other - Left groin surgical biopsy site C/D/I; multiple lymph nodes palpated bilaterally Results Laboratory Results: 03/09/18 11:55 03/09/18 11:55 03/09/18 03/09/18 11:55 11:55 WBC 19.0 H RBC 5.19 Hgb 12.8 L Hct 39.2 MCV 76 L MCH 24.7 L MCHC 32.7 RDW 15.5 H Plt Count 472 H Seg Neutrophils % 84.4 H Lymphocytes % 7.8 L Monocytes % 7.1 Eosinophils % 0.2 Basophils % 0.5 Absolute Neutrophils 16.0 H Absolute Lymphocytes 1.5 Absolute Monocytes 1.3 Absolute Eosinophils 0.0 Absolute Basophils 0.1 Sodium 138.1 Potassium 4.4 Chloride 98 Carbon Dioxide 29 Anion Gap 11 BUN 16 Creatinine 0.86 Est GFR ( Amer) > 60 Est GFR (Non-Af Amer) > 60 Glucose 107 Calcium 9.6 Total Bilirubin 0.7 AST 30 ALT 58 Alkaline Phosphatase 168 H Total Protein 8.7 H Albumin 3.7 Impressions: Scrotum Ultrasound 03/09/18 12:24 IMPRESSION: 1. AGAIN SEEN IS DIFFUSE HETEROGENOUS SCROTAL WALL THICKENING. NO EVIDENCE OF FOCAL ABSCESS. 2. BILATERAL HYDROCELES. 3. UNREMARKABLE TESTICULAR ULTRASOUND. NO EVIDENCE OF TESTICULAR MASS OR TORSION. Assessment & Plan - Plan Summary Plan Summary: A/ Scrotal swelling with redness and absence of pain Cellulitis has been unresponsive to IV and oral Abx S/p left groin LN bx significant for Hodgkin lymphoma left groin LN bx site clean dry, intact Multiple palpable lymph nodes in the groin bilaterally P/ Case discussed with Dr. Patel Urologist; I do not believe there is any correlation between the LN bx and the scotal cellulitis as this was pre-existing to the Bx Possibly, the scrotal cellulitis could represent a form of neoplastic lymphatic invasion occasionally seen in inflammatory carcinoma. No General Surgery issue identified at this point. I believe this is mainly a Urology/Oncology issue.
[2018-03-09 16:28] LABS: APPEARANCE,URINE CLEAR; BILIRUBIN,URINE NEGATIVE (NEGATIVE); COLOR,URINE YELLOW; GLUCOSE, URINE NEGATIVE (NEGATIVE); KETONES,URINE NEGATIVE (NEGATIVE); LEUKOCYTE ESTERASE,URINE NEGATIVE (NEGATIVE); NITRITE,URINE NEGATIVE (NEGATIVE); PROTEIN,URINE 100 mg/dL (NEGATIVE); URINE SPECIFIC GRAVITY 1.025; UROBILINOGEN,URINE NEGATIVE mg/dL (<2.0)
[2018-03-09] MEDS ORDERED: PIPERACILLIN SODIUM/TAZOBACTAM 3.375 GM in NORMAL SALINE 100 ML IV SCH (16:30)
[2018-03-09 16:51] LABS: URINE AMPHETAMINES SCREEN NEGATIVE; URINE BARBITURATES SCREEN NEGATIVE; URINE BENZODIAZEPINES SCREEN NEGATIVE; URINE COCAINE SCREEN NEGATIVE; URINE MARIJUANA (THC) SCREEN NEGATIVE; URINE METHADONE SCREEN NEGATIVE; URINE PHENCYCLIDINE SCREEN NEGATIVE
--- NOTE | 2018-03-09 16:51 | PDOC H&P ---
History of Present Illness Admission Date/PCP: PCP: [facility] CONRAD LIMA MD Patient complains of: Scrotal erythema and penile swelling History of Present Illness: QUINN TREVINO is a 28 year old male who was discharged on February 26 with scrotal cellulitis. At that time he was found to have inguinal lymph node enlargement and a biopsy was done with preliminary results showing possible lymphoma. The patient was supposed to have a PET scan done today, however, he developed penile swelling and recurrent scrotal erythema and presented to the ER. Ultrasound showed diffuse heterogenous scrotal wall thickening with no evidence of focal abscess and no evidence of testicular mass or torsion. He was evaluated by general surgery Dr. Hernandez who recommended that the patient be admitted for IV antibiotics and close monitoring. He denies fever nausea vomiting or diarrhea. The patient just completed a course of Doxycycline and Augmentin. Outpatients Meds: Prilosec 20 mg daily Past Medical History Pulmonary Medical History: Reports: Asthma GI Medical History: Reports: Gastroesophageal Reflux Disease Past Surgical History Past Surgical History: Reports: Herniorrhaphy, Other Social History Information Source: Patient Smoking Status: Former Smoker Frequency of Alcohol Use: None Hx Recreational Drug Use: No Drugs: None Hx Prescription Drug Abuse: No - Advance Directive Resuscitation Status: Full Code Family History Family History: Other - RA, Asthma Parental Family History Reviewed: Yes Children Family History Reviewed: Yes Sibling(s) Family History Reviewed.: Yes Medication/Allergy Home Medications: Doxycycline Hyclate [Vibramycin 100 mg Tablet] 100 mg PO Q12 #20 tablet Furosemide [Lasix 20 mg Tablet] 20 mg PO QAM 03/09/18 Omeprazole Magnesium [Prilosec Otc] 20 mg PO DAILY 03/09/18 Allergies/Adverse Reactions: ciprofloxacin [From Cipro] Allergy (Verified 03/09/18 11:28) Review of Systems Constitutional: ABSENT: fever(s) Eyes: ABSENT: visual disturbances Ears: ABSENT: hearing changes Nose, Mouth, and Throat: ABSENT: sore throat Cardiovascular: ABSENT: chest pain Respiratory: ABSENT: dyspnea Gastrointestinal: ABSENT: abdominal pain, diarrhea, vomiting Genitourinary: PRESENT: other - penile swelling and scrotal erythema. ABSENT: dysuria Musculoskeletal: ABSENT: joint swelling Integumentary: ABSENT: pruritus Neurological: ABSENT: focal weakness Psychiatric: ABSENT: hallucinations Endocrine: PRESENT: cold intolerance Hematologic/Lymphatic: PRESENT: lymphadenopathy Allergic/Immunologic: ABSENT: seasonal rhinorrhea Physical Exam Vital Signs: Temp Pulse Resp BP Pulse Ox 98.0 F 110 H 16 130/73 H 96 03/09/18 11:31 03/09/18 11:31 03/09/18 11:31 03/09/18 11:31 03/09/18 11:31 Intake & Output 03/08/18 03/09/18 03/10/18 06:59 06:59 06:59 Weight 103.7 kg General appearance: PRESENT: no acute distress Head exam: PRESENT: normocephalic Eye exam: PRESENT: PERRLA. ABSENT: scleral icterus Ear exam: PRESENT: normal external ear exam Mouth exam: PRESENT: moist Throat exam: ABSENT: post pharyngeal erythema Neck exam: ABSENT: tracheal deviation Respiratory exam: PRESENT: symmetrical, unlabored. ABSENT: wheezes Cardiovascular exam: PRESENT: RRR GI/Abdominal exam: PRESENT: normal bowel sounds, soft. ABSENT: tenderness Rectal exam: PRESENT: deferred Gentrourinary exam: PRESENT: erythema, scrotal swelling, other - penile edema Neurological exam: PRESENT: alert, awake, oriented to person, oriented to place , oriented to time, oriented to situation Psychiatric exam: PRESENT: appropriate affect Skin exam: ABSENT: jaundice Results Laboratory Results: 03/09/18 11:55 03/09/18 11:55 03/09/18 03/09/18 03/09/18 11:55 11:55 14:50 WBC 19.0 H RBC 5.19 Hgb 12.8 L Hct 39.2 MCV 76 L MCH 24.7 L MCHC 32.7 RDW 15.5 H Plt Count 472 H Seg Neutrophils % 84.4 H Lymphocytes % 7.8 L Monocytes % 7.1 Eosinophils % 0.2 Basophils % 0.5 Absolute Neutrophils 16.0 H Absolute Lymphocytes 1.5 Absolute Monocytes 1.3 Absolute Eosinophils 0.0 Absolute Basophils 0.1 Sodium 138.1 Potassium 4.4 Chloride 98 Carbon Dioxide 29 Anion Gap 11 BUN 16 Creatinine 0.86 Est GFR ( Amer) > 60 Est GFR (Non-Af Amer) > 60 Glucose 107 Calcium 9.6 Total Bilirubin 0.7 AST 30 ALT 58 Alkaline Phosphatase 168 H Total Protein 8.7 H Albumin 3.7 Urine Color YELLOW Urine Appearance CLEAR Urine pH 6.0 Ur Specific [place] 1.025 Urine Protein 100 H Urine Glucose (UA) NEGATIVE Urine Ketones NEGATIVE Urine Blood MODERATE H Urine Nitrite NEGATIVE Ur Leukocyte Esterase NEGATIVE Urine WBC (Auto) 4 Urine RBC (Auto) 7 Impressions: Scrotum Ultrasound 03/09/18 12:24 IMPRESSION: 1. AGAIN SEEN IS DIFFUSE HETEROGENOUS SCROTAL WALL THICKENING. NO EVIDENCE OF FOCAL ABSCESS. 2. BILATERAL HYDROCELES. 3. UNREMARKABLE TESTICULAR ULTRASOUND. NO EVIDENCE OF TESTICULAR MASS OR TORSION. Assessment & Plan - Diagnosis (1) Cellulitis of scrotum Is this a current diagnosis for this admission?: Yes Plan: Check Blood cultures. Start Vancomycin and Meropenem. Urology consult (2) GERD (gastroesophageal reflux disease) Is this a current diagnosis for this admission?: Yes Plan: PPI (3) Lymphadenopathy Is this a current diagnosis for this admission?: Yes Plan: Final LN biopsy results- pending. Consult Dr. Lima. - Time Time Spent: 50 to 70 Minutes
[2018-03-09] MEDS: ACETAMINOPHEN 325 MG TABLET PO PRN (19:42)
[2018-03-09] MEDS: MEROPENEM 1 GM in NORMAL SALINE 50 ML IV SCH (21:45)
[2018-03-09] MEDS: VANCOMYCIN HCL 1,250 MG in DEXTROSE 5%-WATER 250 ML IV SCH (22:50)
[2018-03-10] MEDS: ACETAMINOPHEN 325 MG TABLET PO PRN (06:40)
[2018-03-10] MEDS: MEROPENEM 1 GM in NORMAL SALINE 50 ML IV SCH ×2 (06:41→16:13)
[2018-03-10] MEDS: LANSOPRAZOLE 15 MG TAB.RAP.DR PO SCH (06:41)
[2018-03-10 07:11] LABS: ABSOLUTE BASOPHILS # (AUTO) 0.1 10^3/uL (0.0-0.2); ABSOLUTE EOSINOPHILS # (AUTO) 0.1 10^3/uL (0.0-0.6); ABSOLUTE LYMPHOCYTES (AUTO) 1.2 10^3/uL (0.5-4.7); ABSOLUTE MONOCYTES (AUTO) 1.3 10^3/uL (0.1-1.4); BASOPHILS % (AUTO) 0.8 % (0-2); EOSINOPHILS % (AUTO) 0.8 % (0-6); HEMOGLOBIN 11.2 g/dL (13.5-17.0); LYMPHOCYTES % (AUTO) 7.3 % (13-45); MEAN CORPUSCULAR HEMOGLOBIN 24.9 pg (27.0-33.4); MEAN CORPUSCULAR VOLUME 76 fl (80-97); MONOCYTES % (AUTO) 8.4 % (3-13); PLATELET COUNT 403 10^3/uL (150-450); RED CELL DISTRIBUTION WIDTH 15.7 % (11.5-14.0); SEGMENTED NEUTROPHILS % (AUTO) 82.7 % (42-78); TOTAL CELLS COUNTED % (AUTO) 100 %; WHITE BLOOD COUNT 15.7 10^3/uL (4.0-10.5)
[2018-03-10 07:26] LABS: INTERNATIONAL RATION (INR) 1.17; PARTIAL THROMBOPLASTIN TIME 36.2 SEC (23.5-35.8); PROTHROMBIN TIME 15.5 SEC (11.4-15.4)
[2018-03-10 07:34] LABS: ANION GAP 7 (5-19); BLOOD UREA NITROGEN 17 mg/dL (7-20); CALCIUM 9.1 mg/dL (8.4-10.2); CARBON DIOXIDE 30 mmol/L (22-30); CHLORIDE 99 mmol/L (98-107); GLUCOSE 113 mg/dL (75-110); PHOSPHORUS 4.6 mg/dL (2.5-4.5); POTASSIUM 4.6 mmol/L (3.6-5.0)
[2018-03-10] MEDS: LACTOBACILLUS ACIDOPHILUS 250 MG TAB PO SCH ×3 (07:49→17:47)
[2018-03-10] MEDS: VANCOMYCIN HCL 1,250 MG in DEXTROSE 5%-WATER 250 ML IV SCH ×2 (08:03→13:14)
--- NOTE | 2018-03-10 09:01 | PDOC CONSULTATION ---
Consultation Consult Date: 03/10/18 Attending physician:: TRISTEN POLO Consult reason:: Scrotal redness, penile redness, likely hodgkins lymphoma History of Present Illness Admission Date/PCP: 03/09/18 16:40 CONRAD LIMA MD Patient complains of: Hodgkins lymphoma redness penis/scotum History of Present Illness: QUINN TREVINO is a 28 year old male w diffuse retroperitoneal LAD, inguinal LAD, had L groin LN excision, no final path but prelim looks like hodgkins lymphoma, awaiting final path from [facility], redness and penile swelling started 2 days ago, came in here w. worsening Past Medical History Pulmonary Medical History: Reports: Asthma Malignancy Medical History: Reports: Other - lymphoma GI Medical History: Reports: Gastroesophageal Reflux Disease Past Surgical History Past Surgical History: Reports: Herniorrhaphy, Vascular Surgery - Lympectomy groin 2018, Other - Right inguinal herniorrhaphy 2 as a child Social History Information Source: Patient Lives with: Family Smoking Status: Former Smoker Cigarettes Packs Per Day: 15 Number of Years Smokin Frequency of Alcohol Use: None Hx Recreational Drug Use: No Drugs: None Hx Prescription Drug Abuse: No - Advance Directive Resuscitation Status: Full Code Family History Family History: Reviewed & Not Pertinent Parental Family History Reviewed: Yes Children Family History Reviewed: Yes Sibling(s) Family History Reviewed.: Yes Medication/Allergy Home Medications: Doxycycline Hyclate [Vibramycin 100 mg Tablet] 100 mg PO Q12 #20 tablet Furosemide [Lasix 20 mg Tablet] 20 mg PO QAM 03/09/18 Omeprazole Magnesium [Prilosec Otc] 20 mg PO DAILY 03/09/18 Allergies/Adverse Reactions: ciprofloxacin [From Cipro] Allergy (Verified 03/09/18 11:28) Review of Systems Constitutional: ABSENT: chills, fever(s), headache(s), weight gain, weight loss Eyes: ABSENT: visual disturbances Ears: ABSENT: hearing changes Cardiovascular: ABSENT: chest pain, dyspnea on exertion, edema, orthropnea, palpitations Respiratory: ABSENT: cough, hemoptysis Gastrointestinal: ABSENT: abdominal pain, constipation, diarrhea, hematemesis, hematochezia, nausea, vomiting Genitourinary: ABSENT: dysuria, hematuria Musculoskeletal: ABSENT: joint swelling Integumentary: ABSENT: rash, wounds Neurological: ABSENT: abnormal gait, abnormal speech, confusion, dizziness, focal weakness, syncope Psychiatric: ABSENT: anxiety, depression, homidical ideation, suicidal ideation Endocrine: ABSENT: cold intolerance, heat intolerance, polydipsia, polyuria Hematologic/Lymphatic: ABSENT: easy bleeding, easy bruising Physical Exam Vital Signs: Temp Pulse Resp BP Pulse Ox 97.8 F 80 16 97/64 L 97 03/10/18 08:03 03/10/18 08:03 03/10/18 08:03 03/10/18 08:03 03/10/18 08:03 Intake & Output 03/09/18 03/10/18 03/11/18 06:59 06:59 06:59 Intake Total 800 Balance 800 Weight 104.3 kg General appearance: PRESENT: no acute distress, well-developed, well-nourished Head exam: PRESENT: atraumatic, normocephalic Eye exam: PRESENT: conjunctiva pink, EOMI, PERRLA. ABSENT: scleral icterus Ear exam: PRESENT: normal external ear exam Mouth exam: PRESENT: moist, tongue midline Neck exam: ABSENT: carotid bruit, JVD, lymphadenopathy, thyromegaly Respiratory exam: PRESENT: clear to auscultation ever. ABSENT: rales, rhonchi, wheezes Cardiovascular exam: PRESENT: RRR. ABSENT: diastolic murmur, rubs, systolic murmur Pulses: PRESENT: normal dorsalis pedis pul Vascular exam: PRESENT: normal capillary refill GI/Abdominal exam: PRESENT: normal bowel sounds, soft. ABSENT: distended, guarding, mass, organolmegaly, rebound, tenderness Rectal exam: PRESENT: deferred Extremities exam: PRESENT: full ROM. ABSENT: calf tenderness, clubbing, pedal edema Neurological exam: PRESENT: alert, awake, oriented to person, oriented to place , oriented to time, oriented to situation, CN II-XII grossly intact. ABSENT: motor sensory deficit Psychiatric exam: PRESENT: appropriate affect, normal mood. ABSENT: homicidal ideation, suicidal ideation Skin exam: PRESENT: dry, intact, warm. ABSENT: cyanosis, rash Results Laboratory Results: 03/10/18 07:00 03/10/18 07:00 03/10/18 03/10/18 03/10/18 07:00 07:00 07:00 WBC 15.7 H RBC 4.50 Hgb 11.2 L Hct 34.0 L MCV 76 L MCH 24.9 L MCHC 33.0 RDW 15.7 H Plt Count 403 Seg Neutrophils % 82.7 H Lymphocytes % 7.3 L Monocytes % 8.4 Eosinophils % 0.8 Basophils % 0.8 Absolute Neutrophils 13.0 H Absolute Lymphocytes 1.2 Absolute Monocytes 1.3 Absolute Eosinophils 0.1 Absolute Basophils 0.1 Sodium 136.0 L Potassium 4.6 Chloride 99 Carbon Dioxide 30 Anion Gap 7 BUN 17 Creatinine 0.83 Est GFR ( Amer) > 60 Est GFR (Non-Af Amer) > 60 Glucose 113 H Calcium 9.1 Phosphorus 4.6 H Magnesium 1.8 TSH 1.93 Impressions: Scrotum Ultrasound 03/09/18 12:24 IMPRESSION: 1. AGAIN SEEN IS DIFFUSE HETEROGENOUS SCROTAL WALL THICKENING. NO EVIDENCE OF FOCAL ABSCESS. 2. BILATERAL HYDROCELES. 3. UNREMARKABLE TESTICULAR ULTRASOUND. NO EVIDENCE OF TESTICULAR MASS OR TORSION. 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
[2018-03-10] MEDS: DOCUSATE SODIUM 100 MG CAPSULE PO SCH (09:53)
--- NOTE | 2018-03-10 10:20 | PDOC PROGRESS REPORT ---
Subjective Progress Note for:: 03/10/18 Reason For Visit: SCROTAL CELLULITIS Patient reports less swelling, less discoloration less pain. He does still have some swelling in the penis Physical Exam Vital Signs: Temp Pulse Resp BP Pulse Ox 97.8 F 80 16 97/64 L 97 03/10/18 08:03 03/10/18 08:03 03/10/18 08:03 03/10/18 08:03 03/10/18 08:03 Intake & Output 03/09/18 03/10/18 03/11/18 06:59 06:59 06:59 Intake Total 800 Balance 800 Weight 104.3 kg General appearance: PRESENT: no acute distress GI/Abdominal exam: PRESENT: other - Groin, left lower quadrant examined. The operative scar at the site of lymph node excision looks excellent. Generalized lymphedema reduced. Testicular swelling and erythema and edema diminished. There is some edema of the glans penis. Results Laboratory Results: 03/10/18 07:00 03/10/18 07:00 03/10/18 03/10/18 03/10/18 07:00 07:00 07:00 WBC 15.7 H RBC 4.50 Hgb 11.2 L Hct 34.0 L MCV 76 L MCH 24.9 L MCHC 33.0 RDW 15.7 H Plt Count 403 Seg Neutrophils % 82.7 H Lymphocytes % 7.3 L Monocytes % 8.4 Eosinophils % 0.8 Basophils % 0.8 Absolute Neutrophils 13.0 H Absolute Lymphocytes 1.2 Absolute Monocytes 1.3 Absolute Eosinophils 0.1 Absolute Basophils 0.1 Sodium 136.0 L Potassium 4.6 Chloride 99 Carbon Dioxide 30 Anion Gap 7 BUN 17 Creatinine 0.83 Est GFR ( Amer) > 60 Est GFR (Non-Af Amer) > 60 Glucose 113 H Calcium 9.1 Phosphorus 4.6 H Magnesium 1.8 TSH 1.93 Impressions: Scrotum Ultrasound 03/09/18 12:24 IMPRESSION: 1. AGAIN SEEN IS DIFFUSE HETEROGENOUS SCROTAL WALL THICKENING. NO EVIDENCE OF FOCAL ABSCESS. 2. BILATERAL HYDROCELES. 3. UNREMARKABLE TESTICULAR ULTRASOUND. NO EVIDENCE OF TESTICULAR MASS OR TORSION. Assessment & Plan - Diagnosis (1) Cellulitis of scrotum Is this a current diagnosis for this admission?: Yes Plan: Impression: Overall clinical improvement; no indication for further surgical intervention. Status post left inguinal lymph node biopsy with wound healing satisfactorily Recommendations: 1. Continue intravenous antibiotics 2. I discussed patient's management with urology; we agreed no direct intervention required at this time regarding resolving scrotal edema; likely related to static congestion secondary to underlying malignancy. Her graft 3. We will sign off from a surgical standpoint; reconsult if needed.
--- NOTE | 2018-03-10 12:21 | PDOC PROGRESS REPORT ---
Subjective Progress Note for:: 03/10/18 Subjective:: No complaints. Appetite is good, no diarrhea. Reason For Visit: SCROTAL CELLULITIS Physical Exam Vital Signs: Temp Pulse Resp BP Pulse Ox 98.3 F 80 18 120/66 98 03/10/18 11:49 03/10/18 11:49 03/10/18 11:49 03/10/18 11:49 03/10/18 11:49 Intake & Output 03/09/18 03/10/18 03/11/18 06:59 06:59 06:59 Intake Total 800 Balance 800 Weight 104.3 kg General appearance: PRESENT: no acute distress Head exam: PRESENT: normocephalic Eye exam: ABSENT: scleral icterus Ear exam: PRESENT: normal external ear exam Mouth exam: PRESENT: moist Neck exam: ABSENT: tracheal deviation Respiratory exam: PRESENT: symmetrical, unlabored Cardiovascular exam: PRESENT: RRR GI/Abdominal exam: PRESENT: soft. ABSENT: tenderness Rectal exam: PRESENT: deferred Gentrourinary exam: PRESENT: other - Penile edema Scrotal erythema improving Erythema over L groin and upper thigh improving Extremities exam: ABSENT: pedal edema Neurological exam: PRESENT: alert, awake, oriented to person, oriented to place Psychiatric exam: PRESENT: appropriate affect Skin exam: PRESENT: other - see above Results Laboratory Results: 03/10/18 07:00 03/10/18 07:00 03/10/18 03/10/18 03/10/18 07:00 07:00 07:00 WBC 15.7 H RBC 4.50 Hgb 11.2 L Hct 34.0 L MCV 76 L MCH 24.9 L MCHC 33.0 RDW 15.7 H Plt Count 403 Seg Neutrophils % 82.7 H Lymphocytes % 7.3 L Monocytes % 8.4 Eosinophils % 0.8 Basophils % 0.8 Absolute Neutrophils 13.0 H Absolute Lymphocytes 1.2 Absolute Monocytes 1.3 Absolute Eosinophils 0.1 Absolute Basophils 0.1 Sodium 136.0 L Potassium 4.6 Chloride 99 Carbon Dioxide 30 Anion Gap 7 BUN 17 Creatinine 0.83 Est GFR ( Amer) > 60 Est GFR (Non-Af Amer) > 60 Glucose 113 H Calcium 9.1 Phosphorus 4.6 H Magnesium 1.8 TSH 1.93 Impressions: Scrotum Ultrasound 03/09/18 12:24 IMPRESSION: 1. AGAIN SEEN IS DIFFUSE HETEROGENOUS SCROTAL WALL THICKENING. NO EVIDENCE OF FOCAL ABSCESS. 2. BILATERAL HYDROCELES. 3. UNREMARKABLE TESTICULAR ULTRASOUND. NO EVIDENCE OF TESTICULAR MASS OR TORSION. Assessment & Plan - Diagnosis (1) Cellulitis of scrotum Is this a current diagnosis for this admission?: Yes Plan: Follow up on Blood cultures. Day 2 Vancomycin and Meropenem. Urology and Surgery consults appreciated (2) GERD (gastroesophageal reflux disease) Is this a current diagnosis for this admission?: Yes Plan: PPI (3) Lymphadenopathy Is this a current diagnosis for this admission?: Yes Plan: Final LN biopsy results- pending. Preliminary results point to Hodgkin's lymphoma Dr. Herzog's input appreciated. Needs PET scan for staging - Time Time Spent with patient: 25-34 minutes
[2018-03-10] MEDS ORDERED: OXYCODONE-ACETAMINOPHEN 5-325 MG TABLET PO PRN (22:15)
[2018-03-11] MEDS: VANCOMYCIN HCL 1,250 MG in DEXTROSE 5%-WATER 250 ML IV SCH ×2 (00:55→07:48)
[2018-03-11] MEDS: ACETAMINOPHEN 325 MG TABLET PO PRN (01:03)
[2018-03-11] MEDS: MEROPENEM 1 GM in NORMAL SALINE 50 ML IV SCH ×3 (02:15→13:21)
[2018-03-11] MEDS: LANSOPRAZOLE 15 MG TAB.RAP.DR PO SCH (06:17)
[2018-03-11 06:42] LABS: ABSOLUTE BASOPHILS # (AUTO) 0.1 10^3/uL (0.0-0.2); ABSOLUTE EOSINOPHILS # (AUTO) 0.2 10^3/uL (0.0-0.6); ABSOLUTE LYMPHOCYTES (AUTO) 1.3 10^3/uL (0.5-4.7); ABSOLUTE MONOCYTES (AUTO) 1.5 10^3/uL (0.1-1.4); ABSOLUTE NEUT (AUTO) 11.1 10^3/uL (1.7-8.2); BASOPHILS % (AUTO) 0.9 % (0-2); EOSINOPHILS % (AUTO) 1.2 % (0-6); HEMATOCRIT 32.8 % (37.9-51.0); HEMOGLOBIN 10.7 g/dL (13.5-17.0); LYMPHOCYTES % (AUTO) 9.4 % (13-45); MEAN CORPUSCULAR HEMOGLOBIN 24.7 pg (27.0-33.4); MEAN CORPUSCULAR HGB CONC 32.5 g/dL (32.0-36.0); MEAN CORPUSCULAR VOLUME 76 fl (80-97); MONOCYTES % (AUTO) 10.5 % (3-13); PLATELET COUNT 388 10^3/uL (150-450); RED BLOOD COUNT 4.32 10^6/uL (4.35-5.55); RED CELL DISTRIBUTION WIDTH 15.6 % (11.5-14.0); TOTAL CELLS COUNTED % (AUTO) 100 %; WHITE BLOOD COUNT 14.2 10^3/uL (4.0-10.5)
[2018-03-11 07:24] LABS: ANION GAP 11 (5-19); BLOOD UREA NITROGEN 15 mg/dL (7-20); CALCIUM 8.8 mg/dL (8.4-10.2); CARBON DIOXIDE 30 mmol/L (22-30); CHLORIDE 99 mmol/L (98-107); GLUCOSE 97 mg/dL (75-110); POTASSIUM 4.4 mmol/L (3.6-5.0); SODIUM 140.2 mmol/L (137-145); VANCOMYCIN,TROUGH 9.3 ug/mL (5.0-20.0)
--- NOTE | 2018-03-11 09:12 | PDOC PROGRESS REPORT ---
Subjective Progress Note for:: 03/11/18 Subjective:: Patient today is having some back pain, is also having some gas and some abdominal bloating. Reason For Visit: SCROTAL CELLULITIS Physical Exam Vital Signs: Temp Pulse Resp BP Pulse Ox 99.6 F 92 20 114/61 98 03/11/18 07:58 03/11/18 07:58 03/11/18 07:58 03/11/18 07:58 03/11/18 07:58 Intake & Output 03/10/18 03/11/18 03/12/18 06:59 06:59 06:59 Intake Total 800 1670 Balance 800 1670 Weight 104.3 kg 104.3 kg General appearance: PRESENT: no acute distress, well-developed, well-nourished Head exam: PRESENT: atraumatic, normocephalic Eye exam: PRESENT: conjunctiva pink, EOMI, PERRLA. ABSENT: scleral icterus Ear exam: PRESENT: normal external ear exam Mouth exam: PRESENT: moist, tongue midline Neck exam: ABSENT: carotid bruit, JVD, lymphadenopathy, thyromegaly Respiratory exam: PRESENT: clear to auscultation ever. ABSENT: rales, rhonchi, wheezes Cardiovascular exam: PRESENT: RRR. ABSENT: diastolic murmur, rubs, systolic murmur Pulses: PRESENT: normal dorsalis pedis pul Vascular exam: PRESENT: normal capillary refill GI/Abdominal exam: PRESENT: normal bowel sounds, soft. ABSENT: distended, guarding, mass, organolmegaly, rebound, tenderness Rectal exam: PRESENT: deferred Extremities exam: PRESENT: full ROM. ABSENT: calf tenderness, clubbing, pedal edema Neurological exam: PRESENT: alert, awake, oriented to person, oriented to place , oriented to time, oriented to situation, CN II-XII grossly intact. ABSENT: motor sensory deficit Psychiatric exam: PRESENT: appropriate affect, normal mood. ABSENT: homicidal ideation, suicidal ideation Skin exam: PRESENT: dry, intact, warm. ABSENT: cyanosis, rash Results Laboratory Results: 03/11/18 05:54 03/11/18 05:54 03/11/18 03/11/18 05:54 05:54 WBC 14.2 H RBC 4.32 L Hgb 10.7 L Hct 32.8 L MCV 76 L MCH 24.7 L MCHC 32.5 RDW 15.6 H Plt Count 388 Seg Neutrophils % 78.0 Lymphocytes % 9.4 L Monocytes % 10.5 Eosinophils % 1.2 Basophils % 0.9 Absolute Neutrophils 11.1 H Absolute Lymphocytes 1.3 Absolute Monocytes 1.5 H Absolute Eosinophils 0.2 Absolute Basophils 0.1 Sodium 140.2 Potassium 4.4 Chloride 99 Carbon Dioxide 30 Anion Gap 11 BUN 15 Creatinine 0.84 Est GFR ( Amer) > 60 Est GFR (Non-Af Amer) > 60 Glucose 97 Calcium 8.8 Phosphorus 5.0 H Magnesium 1.9 Impressions: Scrotum Ultrasound 03/09/18 12:24 IMPRESSION: 1. AGAIN SEEN IS DIFFUSE HETEROGENOUS SCROTAL WALL THICKENING. NO EVIDENCE OF FOCAL ABSCESS. 2. BILATERAL HYDROCELES. 3. UNREMARKABLE TESTICULAR ULTRASOUND. NO EVIDENCE OF TESTICULAR MASS OR TORSION. Assessment & Plan - Diagnosis (1) Cellulitis of scrotum Is this a current diagnosis for this admission?: Yes Plan: Improved, continue with IV antibiotics for now, per urology and hospitalist team. 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 The reason for this is the 2 lymphomas would be treated completely differently with different medications. However, they did recommend initiating oral steroids, because we have enough tissue to complete this diagnosis Since he is getting PET scan this evening, we will plan for the oral steroids to initiate tomorrow.
[2018-03-11] MEDS ORDERED: SIMETHICONE 80 MG TAB.CHEW PO PRN (09:15)
[2018-03-11] MEDS: HYDROCODONE/ACETAMINOPHEN 5-325 MG TABLET PO PRN ×3 (10:52→23:10)
[2018-03-11] MEDS: LACTOBACILLUS ACIDOPHILUS 250 MG TAB PO SCH ×2 (10:52→17:36)
[2018-03-11] MEDS: DOCUSATE SODIUM 100 MG CAPSULE PO SCH (10:53)
[2018-03-11] MEDS: PREDNISONE 20 MG TABLET PO SCH (10:54)
--- NOTE | 2018-03-11 11:42 | PDOC PROGRESS REPORT ---
Subjective Progress Note for:: 03/11/18 Subjective:: 28 yr old male with suspected lymphoma, s/p L inguinal LN biopsy- final results pending. Presented with scrotal cellulitis and penile swelling. Improving with antibiotics. Plan for PET scan today. Reason For Visit: SCROTAL CELLULITIS Physical Exam Vital Signs: Temp Pulse Resp BP Pulse Ox 99.6 F 90 18 114/61 98 03/11/18 07:58 03/11/18 09:32 03/11/18 09:32 03/11/18 07:58 03/11/18 09:32 Intake & Output 03/10/18 03/11/18 03/12/18 06:59 06:59 06:59 Intake Total 800 2220 Balance 800 2220 Weight 104.3 kg 104.3 kg General appearance: PRESENT: no acute distress Head exam: PRESENT: normocephalic Eye exam: ABSENT: scleral icterus Ear exam: PRESENT: normal external ear exam Mouth exam: PRESENT: moist Respiratory exam: PRESENT: symmetrical, unlabored Cardiovascular exam: PRESENT: RRR GI/Abdominal exam: PRESENT: normal bowel sounds, soft. ABSENT: tenderness Rectal exam: PRESENT: deferred Results Laboratory Results: 03/11/18 05:54 03/11/18 05:54 03/11/18 03/11/18 05:54 05:54 WBC 14.2 H RBC 4.32 L Hgb 10.7 L Hct 32.8 L MCV 76 L MCH 24.7 L MCHC 32.5 RDW 15.6 H Plt Count 388 Seg Neutrophils % 78.0 Lymphocytes % 9.4 L Monocytes % 10.5 Eosinophils % 1.2 Basophils % 0.9 Absolute Neutrophils 11.1 H Absolute Lymphocytes 1.3 Absolute Monocytes 1.5 H Absolute Eosinophils 0.2 Absolute Basophils 0.1 Sodium 140.2 Potassium 4.4 Chloride 99 Carbon Dioxide 30 Anion Gap 11 BUN 15 Creatinine 0.84 Est GFR ( Amer) > 60 Est GFR (Non-Af Amer) > 60 Glucose 97 Calcium 8.8 Phosphorus 5.0 H Magnesium 1.9 Impressions: Scrotum Ultrasound 03/09/18 12:24 IMPRESSION: 1. AGAIN SEEN IS DIFFUSE HETEROGENOUS SCROTAL WALL THICKENING. NO EVIDENCE OF FOCAL ABSCESS. 2. BILATERAL HYDROCELES. 3. UNREMARKABLE TESTICULAR ULTRASOUND. NO EVIDENCE OF TESTICULAR MASS OR TORSION. Assessment & Plan - Diagnosis (1) Cellulitis of scrotum Is this a current diagnosis for this admission?: Yes Plan: Follow up on Blood cultures. Day 3 Vancomycin and Meropenem. Urology and Surgery consults appreciated (2) GERD (gastroesophageal reflux disease) Is this a current diagnosis for this admission?: Yes Plan: PPI (3) Lymphadenopathy Is this a current diagnosis for this admission?: Yes Plan: Final LN biopsy results- pending. PET scan today - Time Time Spent with patient: 25-34 minutes
[2018-03-11] MEDS ORDERED: VANCOMYCIN HCL 1,500 MG in DEXTROSE 5%-WATER 250 ML IV SCH (14:00)
[2018-03-11] MEDS ORDERED: CYCLOBENZAPRINE HCL 10 MG TABLET PO PRN (15:59)
--- NOTE | 2018-03-11 18:47 | Progress Note ---
Provider Note Provider Note: Patient developed a red rash- likely due to vancomycin which was stopped.
[2018-03-11] MEDS ORDERED: CHOLESTYRAMINE/ASPARTAME 4 GM PACKET PO PRN (18:48)
[2018-03-11] MEDS: CLINDAMYCIN HCL 150 MG CAPSULE PO SCH (23:07)
[2018-03-12] MEDS: CLINDAMYCIN HCL 150 MG CAPSULE PO SCH ×2 (06:44→11:38)
[2018-03-12] MEDS: LANSOPRAZOLE 15 MG TAB.RAP.DR PO SCH (06:45)
[2018-03-12] MEDS: HYDROCODONE/ACETAMINOPHEN 5-325 MG TABLET PO PRN (07:37)
[2018-03-12 08:52] VITALS: BP 115/62
--- NOTE | 2018-03-12 08:56 | PDOC PROGRESS REPORT ---
Subjective Progress Note for:: 03/12/18 Subjective:: No acute events today Reason For Visit: SCROTAL CELLULITIS Physical Exam Vital Signs: Temp Pulse Resp BP Pulse Ox 98.4 F 78 18 106/65 98 03/12/18 03:48 03/12/18 03:48 03/12/18 03:48 03/12/18 03:48 03/12/18 03:48 Intake & Output 03/11/18 03/12/18 03/13/18 06:59 06:59 06:59 Intake Total 2220 550 Balance 2220 550 Weight 104.3 kg 104.4 kg General appearance: PRESENT: no acute distress, well-developed, well-nourished Head exam: PRESENT: atraumatic, normocephalic Eye exam: PRESENT: conjunctiva pink, EOMI, PERRLA. ABSENT: scleral icterus Ear exam: PRESENT: normal external ear exam Mouth exam: PRESENT: moist, tongue midline Neck exam: ABSENT: carotid bruit, JVD, lymphadenopathy, thyromegaly Respiratory exam: PRESENT: clear to auscultation ever. ABSENT: rales, rhonchi, wheezes Cardiovascular exam: PRESENT: RRR. ABSENT: diastolic murmur, rubs, systolic murmur Pulses: PRESENT: normal dorsalis pedis pul Vascular exam: PRESENT: normal capillary refill GI/Abdominal exam: PRESENT: normal bowel sounds, soft. ABSENT: distended, guarding, mass, organolmegaly, rebound, tenderness Rectal exam: PRESENT: deferred Extremities exam: PRESENT: full ROM. ABSENT: calf tenderness, clubbing, pedal edema Neurological exam: PRESENT: alert, awake, oriented to person, oriented to place , oriented to time, oriented to situation, CN II-XII grossly intact. ABSENT: motor sensory deficit Psychiatric exam: PRESENT: appropriate affect, normal mood. ABSENT: homicidal ideation, suicidal ideation Skin exam: PRESENT: dry, intact, warm. ABSENT: cyanosis, rash Results Laboratory Results: 03/11/18 05:54 03/11/18 05:54 Impressions: Scrotum Ultrasound 03/09/18 12:24 IMPRESSION: 1. AGAIN SEEN IS DIFFUSE HETEROGENOUS SCROTAL WALL THICKENING. NO EVIDENCE OF FOCAL ABSCESS. 2. BILATERAL HYDROCELES. 3. UNREMARKABLE TESTICULAR ULTRASOUND. NO EVIDENCE OF TESTICULAR MASS OR TORSION. 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
--- NOTE | 2018-03-12 10:32 | RADIOLOGY REPORT (SQ) ---
EXAM DESCRIPTION: PET CT SKULL/THIGH COMPLETED DATE/TIME: 03/12/2018 9:10 am REASON FOR STUDY: NHL COMPARISON: CT chest abdomen pelvis 02/25/2018 RADIONUCLIDE AND DOSE: 10.6 mCi F18 FDG The route of agent administration: Intravenous FASTING BLOOD SUGAR: 119 mg/dl CONTRAST TYPE AND DOSE: No CT contrast given. TECHNIQUE: Blood glucose level was verified. Above dose of FDG was injected intravenously. 2-D seg mented attenuation correction images were obtained from the base of the skull to the midthighs. Nonc ontrast CT images were obtained for attenuation correction and fusion with emission images. CT image s were performed without oral or intravenous contrast and are not sensitive for parenchymal lesions. A series of overlapping emission PET images were obtained. Images reviewed and manipulated at [facility] [employer] work station by the radiologist. Images stored on PACS. LIMITATIONS: None. FINDINGS: HEAD AND NECK: A 2.1 x 1.6 cm lymph node is present in left carotid space image 63, SUV 5. 6. CHEST: At the thoracic inlet, a 0.8 cm prevascular lymph node is present on axial image 70 with SUV 4 .5. There is a left retrocrural lymph node on axial image 146, 1.6 x 1.4 cm in size with SUV 10.7. ABDOMEN AND PELVIS: Multiple retroperitoneal, external iliac, and bilateral inguinal enlarged hyperme tabolic lymph nodes are present. Index lesions are as follows: Left para aortic 3.7 x 2.7 cm lymph node axial image 166, SUV 8.3 Left common iliac 2.2 x 1.6 cm lymph node axial image 197, SUV 11.6 Left external iliac 5.4 x 5 cm lymph node axial image 225, SUV 10.4 Right external iliac 3 x 2 cm lymph node axial image 235, SUV 17.2 Left inguinal 5 x 3 cm lymph node axial image 239, SUV 10.4 Right inguinal 3.2 x 2.2 cm lymph node axial image 241, SUV 16.8 The spleen is 17 cm in length, splenic activity is 2.8 SUV PROXIMAL LOWER EXTREMITIES: No areas of abnormal metabolic activity in the soft tissues of the lower extremities. BONES: Diffuse bone marrow mild increased activity is present, ranging from 3.2 to [address] FINDINGS: There is edema in the subcutaneous tissues left leg. This may represent lymp h edema. Some extrinsic compression of the left external iliac vein may be present due to bulky left pelvic adenopathy. OTHER: Liver background activity 1.9 SUV. Blood pool background activity 1.1 SUV IMPRESSION: Hypermetabolic adenopathy in the left neck, prevascular region at the thoracic inlet, le ft retrocrural region, para aortic, pelvic, and inguinal regions. Splenomegaly with mild increased activity. TECHNICAL DOCUMENTATION: JOB ID: [id number] [employer]- All Rights Reserved Reading location - IP/workstation name: [facility]
[2018-03-12] MEDS: DOCUSATE SODIUM 100 MG CAPSULE PO SCH (10:52)
[2018-03-12] MEDS: PREDNISONE 20 MG TABLET PO SCH (10:53)
[2018-03-12] MEDS: LACTOBACILLUS ACIDOPHILUS 250 MG TAB PO SCH (10:55)
--- NOTE | 2018-03-12 18:07 | PDOC DISCHARGE SUMMARY ---
General - Admit/Disc Date/PCP Admission Date/Primary Care Provider: 03/09/18 16:40 CONRAD LIMA MD Discharge Date: 03/12/18 - Discharge Diagnosis (1) Cellulitis of scrotum Is this a current diagnosis for this admission?: Yes Summary: Treated initially with vancomycin, but had a rash possibly from the vancomycin. He was changed over to clindamycin and continues to improve. I will discharge him on another week. (2) Lymphoma Is this a current diagnosis for this admission?: Yes Summary: Final diagnosis is still pending. Started on high-dose prednisone. Outpatient follow-up with oncology. - Additional Information Resuscitation Status: Full Code Discharge Diet: As Tolerated Discharge Activity: Activity As Tolerated, Balance Activity w/Rest Prescriptions: Clindamycin HCl [Cleocin 150 mg Capsule] 300 mg PO Q6 #28 capsule Prednisone [Deltasone 20 mg Tablet] 100 mg PO DAILY #5 tablet Home Medications: Omeprazole Magnesium [Prilosec Otc] 20 mg PO DAILY 03/09/18 Clindamycin HCl [Cleocin 150 mg Capsule] 300 mg PO Q6 #28 capsule 03/12/18 Prednisone [Deltasone 20 mg Tablet] 100 mg PO DAILY #5 tablet 03/12/18 History of Present Illness Patient complains of: Scrotal erythema and penile swelling History of Present Illness: NOLBERTO TREVINO is a 28 year old male who was discharged on February 26 with scrotal cellulitis. At that time he was found to have inguinal lymph node enlargement and a biopsy was done with preliminary results showing possible lymphoma. The patient was supposed to have a PET scan done today, however, he developed penile swelling and recurrent scrotal erythema and presented to the ER. Ultrasound showed diffuse heterogenous scrotal wall thickening with no evidence of focal abscess and no evidence of testicular mass or torsion. He was evaluated by general surgery Dr. Hernandez who recommended that the patient be admitted for IV antibiotics and close monitoring. He denies fever nausea vomiting or diarrhea. The patient just completed a course of Doxycycline and Augmentin. Hospital Course Hospital Course: He was evaluated by surgery who discussed the case with urology. They recommended treatment with antibiotics, though this could be neoplastic lymphatic invasion. He was subsequently seen by oncology where after discussing the case with [facility] decided to start him on high-dose prednisone pending final determination of the lymphoma type. His penile and scrotal erythema and swelling have improved on his current medication. So I will send him home on another week of the antibiotics, and another 5 days of prednisone. Physical Exam Vital Signs: Temp Pulse Resp BP Pulse Ox 99.0 F 91 18 115/62 99 03/12/18 12:12 03/12/18 12:12 03/12/18 12:12 03/12/18 12:12 03/12/18 12:12 Intake & Output 03/11/18 03/12/18 03/13/18 05:59 05:59 05:59 Intake Total 2470 550 Balance 2470 550 Weight 229 lb 15.074 oz 229 lb 15.074 oz 230 lb 2.601 oz General appearance: PRESENT: no acute distress, obese Respiratory exam: PRESENT: clear to auscultation ever Cardiovascular exam: PRESENT: RRR GI/Abdominal exam: PRESENT: soft Gentrourinary exam: PRESENT: erythema - I had not previously examined him, but I am informed by him that it is improved, scrotal swelling Neurological exam: PRESENT: alert Psychiatric exam: PRESENT: appropriate affect Skin exam: PRESENT: warm Results Laboratory Results: 03/11/18 05:54 03/11/18 05:54 Impressions: Scrotum Ultrasound 03/09/18 12:24 IMPRESSION: 1. AGAIN SEEN IS DIFFUSE HETEROGENOUS SCROTAL WALL THICKENING. NO EVIDENCE OF FOCAL ABSCESS. 2. BILATERAL HYDROCELES. 3. UNREMARKABLE TESTICULAR ULTRASOUND. NO EVIDENCE OF TESTICULAR MASS OR TORSION. PET, CT Tumor Imaging 03/11/18 19:18 IMPRESSION: Hypermetabolic adenopathy in the left neck, prevascular region at the thoracic inlet, left retrocrural region, para aortic, pelvic, and inguinal regions. Splenomegaly with mild increased activity. Qualifiers - * PATIENT BEING DISCHARGED WITH ANY OF THE FOLLOWING DIAGNOSIS: No
== END 2018-03-12 13:00 | disposition home or self-care (01) | DRG 728 ==
LOC: ER 11:24 → EH 16:40 → 2N 18:35
PROVIDERS: ADMIT Internal Medicine; ATTEND Internal Medicine
DX: N49.2 Inflammatory disorders of scrotum (principal); C85.95 Non-Hodgkin lymphoma, unspecified, lymph nodes of inguinal region and lower limb; K21.9 Gastro-esophageal reflux disease without esophagitis; J45.909 Unspecified asthma, uncomplicated; Z87.891 Personal history of nicotine dependence; Z88.1 Allergy status to other antibiotic agents; L27.1 Localized skin eruption due to drugs and medicaments taken internally; T36.8X5A Adverse effect of other systemic antibiotics, initial encounter; Y92.239 Unspecified place in hospital as the place of occurrence of the external cause
CPT/HCPCS: 36415; 76870; 78815; 80048; 80053; 80202; 80307; 81001; 83036; 83735; 84100; 84443; 85025; 85610; 85730; 87040; 93976; 96360; 99285; A9552; J2185; J3370; J7030; J7060; J7512

== ENCOUNTER 2018-03-21 06:51 | Day surgery (SDC) | payer MEDICAID ==
[~2018-03-21 06:51] MED LIST: ACETAMINOPHEN 325 MG TABLET PO PRN; BUPIVACAINE HCL 0.25 % INJ/PF (2.5 MG/1 ML) 30 ML VIAL ONE; CEFAZOLIN 2 GM/D5W RTU 2 GM/50 ML RTUPB IV PRN; LIDOCAINE 1% INJ-PF (10 MG/ML) 30 ML SDV ONE; RINGERS SOLUTION,LACTATED 1,000 ML IV PRN
[2018-03-21] MEDS ORDERED: MIDAZOLAM 2 MG/2 ML INJ ONE (07:00)
[2018-03-21] MEDS ORDERED: FENTANYL CITRATE INJ/PF 100 MCG/2 ML AMPUL ONE (07:00)
[2018-03-21] MEDS ORDERED: PROPOFOL INJ 200 MG/20 ML VIAL IV ONE (07:01)
[2018-03-21] MEDS ORDERED: ACETAMINOPHEN 0 MG/0 ML RTUPB IV ONE (07:01)
[2018-03-21] MEDS ORDERED: PROMETHAZINE HCL INJ 25 MG/1 ML VIAL IV PRN ×2 (09:23)
[2018-03-21] MEDS ORDERED: DIPHENHYDRAMINE HCL 50 MG/ML VIAL IV PRN (09:23)
[2018-03-21] MEDS ORDERED: FENTANYL CITRATE INJ/PF 100 MCG/2 ML AMPUL IV PRN ×3 (09:23)
[2018-03-21] MEDS ORDERED: MEPERIDINE HCL/PF INJ 25 MG/1 ML DISP.SYRIN IV PRN (09:23)
[2018-03-21] MEDS ORDERED: HYDROCODONE/ACETAMINOPHEN 5-325 MG TABLET PO PRN (10:17)
--- NOTE | 2018-03-21 10:58 | RADIOLOGY REPORT (SQ) ---
EXAM DESCRIPTION: CHEST SINGLE VIEW COMPLETED DATE/TIME: 03/21/2018 10:35 am REASON FOR STUDY: S/P mediport insertion COMPARISON: PET-CT 03/11/2018 EXAM PARAMETERS: NUMBER OF VIEWS: One view. TECHNIQUE: Single frontal radiographic view of the chest acquired. RADIATION DOSE: NA LIMITATIONS: None. FINDINGS: LUNGS AND PLEURA: No opacities, masses or pneumothorax. No pleural effusion. MEDIASTINUM AND HILAR STRUCTURES: No masses. Contour normal. HEART AND VASCULAR STRUCTURES: Heart normal in size. Normal vasculature. BONES: No acute findings. HARDWARE: Right permanent central line tip superior vena cava. No pneumothorax. OTHER: No other significant finding. IMPRESSION: Right permanent central line tip superior vena cava. No pneumothorax. TECHNICAL DOCUMENTATION: JOB ID: [id number] [employer]- All Rights Reserved Reading location - IP/workstation name: [email or web address]
--- NOTE | 2018-03-21 11:23 | RADIOLOGY REPORT (SQ) ---
EXAM DESCRIPTION: FLUORO/CV PLACEMENT COMPLETED DATE/TIME: 03/21/2018 11:03 am REASON FOR STUDY: PORTACATH PLCMT RT SIDE ASST WITH FLUORO IN OR C85.90 NON-HODGKIN LYMPHOMA, UNSPE CIFIED, UNSPECIFIED SITE COMPARISON: PET-CT 03/11/2018 FLUOROSCOPY TIME: 0.6 minutes 1 digital radiographic image saved to PACS. TECHNIQUE: Intra-operative images acquired during surgical procedure to evaluate progress. NUMBER OF IMAGES: 1 digital radiographic image LIMITATIONS: None. FINDINGS: Intra procedural imaging and fluoro during placement of a right-sided permanent central li ne with the tip in the superior vena cava. Please see the operative report for further details IMPRESSION: Intra procedural imaging and fluoro COMMENT: Quality ID [id number]: Final reports for procedures using fluoroscopy that document radiation exp osure indices, or exposure time and number of fluorographic images (if radiation exposure indices are not available) Please consult full operative report of the attending physician for description of the procedure. TECHNICAL DOCUMENTATION: JOB ID: [id number] [employer]- All Rights Reserved Reading location - IP/workstation name: [email or web address]
[2018-03-21 11:59] VITALS: BP 102/66
--- NOTE | 2018-03-21 16:15 | Discharge Summary ---
Discharge Summary (SDC) - Discharge Final Diagnosis: lymphoma Date of Surgery: 03/21/18 Discharge Date: 03/21/18 Condition: Stable Forms: ASU Anesthesia D/C Instruction, Discharge POC-Surgical Service Referrals: DIONISIO MONROY MD [ACTIVE STAFF] - Discharge Diet: As Tolerated Respiratory Treatments at Home: Deep Breathing/Coughing Discharge Activity: Activity As Tolerated, No Driving, No Lifting Over 10 Pounds , No Lifting/Push/Pulling, Slowly Increase Activity, No tub bath Home Care Assistance: None Needed Report the Following to Your Physician Immediately: Shortness of Breath, Nausea , Vomiting, Increase in Pain, Fever over 101 Degrees, Unusual Bleeding, Redness , Swelling, Warmth, Increased Soreness, Drainage-Yellow, Drainage-Bai, Drainage -Green, Drainage-Foul Smelling, Wheezing, IV Site Infection Signs
--- NOTE | 2018-03-21 16:22 | Operative Report ---
Nonrecallable Operative Report DATE OF SURGERY: 03/21/18 PREOPERATIVE DIAGNOSIS: Lymphoma POSTOPERATIVE DIAGNOSIS: Lymphoma OPERATION: 1. Ultrasound-guided central venous puncture. 2. Right internal jugular vein Mediport placement. SURGEON: DIONISIO MONROY ANESTHESIA: LMAC TISSUE REMOVED OR ALTERED: None COMPLICATIONS: None apparent ESTIMATED BLOOD LOSS: Minimal PROCEDURE: Drains/implants: Right internal jugular vein Mediport. Procedure in detail: After informed consent was obtained, the patient was brought in the operating room and laid in the Trendelenburg position. The area of the right neck and chest were prepped and draped in a normal sterile fashion. The ultrasound was used to identify the right internal jugular vein. It was compressible with normal flow. The supplied needle was then used to access the right internal jugular vein under direct ultrasonic guidance. The syringe returned dark venous, nonpulsatile blood. The wire was then inserted easily through the needle. The wire was confirmed to be within the lumen of the vein using ultrasound as well as fluoroscopy. A separate incision was then created on the right chest in order to accommodate the Mediport hub. The catheter was tunneled from the Mediport hub incision to the needle insertion site. The dilator and breakaway sheath were then inserted over the wire under direct fluoroscopic guidance. The wire and dilator were removed, leaving the sheath within the SVC. The catheter was then inserted into the sheath. The sheath was cracked and pulled away, leaving the catheter within the SVC. The catheter was pulled back to an appropriate level under fluoroscopy. The catheter was then trimmed to length, and the Mediport hub was attached. The hub was buried in the previously created pocket. The hub was sutured to the chest wall using 3-0 Vicryl suture. The catheter was then aspirated and flushed with heparinized saline. The subcutaneous tissue was closed using 3-0 Vicryl suture in simple running fashion. The overlying skin was closed using 4- 0 Vicryl Rapide suture in subcuticular fashion. A dressing was fashioned, and the procedure was concluded. All sponge, instrument, and needle counts were correct 2. Condition: Stable.
== END 2018-03-21 12:00 | disposition home or self-care (01) ==
LOC: OROUT 06:51
PROVIDERS: ATTEND Surgery
DX: C85.95 Non-Hodgkin lymphoma, unspecified, lymph nodes of inguinal region and lower limb (principal); K21.9 Gastro-esophageal reflux disease without esophagitis; Z79.899 Other long term (current) drug therapy
CPT/HCPCS: 36561; 71045; 77001; C1788; J2250; J3010; J3490; S0020; J2704; J0690; J1642; 532; J0131

== ENCOUNTER → 2018-03-24 | Outpatient (CLI) | payer MEDICAID ==
--- NOTE | 2018-03-24 15:59 | RADIOLOGY REPORT (SQ) ---
EXAM DESCRIPTION: NM MUGA REST COMPLETED DATE/TIME: 03/24/2018 3:50 pm REASON FOR STUDY: NODULAR SCLEROSIS HODGKIN LYMPHOMA, LYMPH NODES MULT SITE C81.18 NODULAR SCLEROSI S HODGKIN LYMPHOMA, LYMPH NODES MULT COMPARISON: None. RADIONUCLIDE AND DOSE: 25.7 mCi technetium 99m labeled red blood cells The route of agent administration: Intravenous TECHNIQUE: Following administration of the radionuclide, gated images of the heart are obtained in t hree projections. Left ventricular functional analysis performed. LIMITATIONS: None. FINDINGS: LEFT VENTRICULAR FUNCTION: EJECTION FRACTION: 70%. END-DIASTOLIC VOLUME: 157 mL. END-SYSTOLIC VOLUME: 45 mL. WALL MOTION: No focal wall motion abnormalities. OTHER: No other significant finding. IMPRESSION: NORMAL CARDIAC MUGA STUDY. NORMAL LEFT VENTRICULAR FUNCTION WITH VALUES ABOVE. TECHNICAL DOCUMENTATION: JOB ID: [id number] [employer]- All Rights Reserved Reading location - IP/workstation name: [email or web address]
== END ==
LOC: RAD 13:49
PROVIDERS: ATTEND Internal Medicine
DX: C81.18 Nodular sclerosis Hodgkin lymphoma, lymph nodes of multiple sites (principal)
CPT/HCPCS: 78472; A9538; Q9969